=== PATIENT | female | born 1975 | race Caucasian/White ===

== ENCOUNTER → 2020-08-14 09:47 | Outpatient (CLI) | payer OTHER, SELFPAY ==
--- NOTE | ~2020-08-14 | MM_ITS ---
EXAMINATION: MM screening analy BI w ez HISTORY: Screening mammogram TECHNIQUE: Craniocaudal and mediolateral oblique 3-D tomosynthesis images were obtained and synthetic 2-D images were generated. CAD analysis was submitted and interpreted. COMPARISON: 11/10/2018, 09/02/2017, 247 BREAST PARENCHYMAL COMPOSITION: The breasts are heterogeneously dense, which may obscure small masses . FINDINGS: RIGHT BREAST: There is no evidence of suspicious mass, calcification, or architectural distortion to suggest malignancy. There has been no significant interval change. LEFT BREAST: There is possible architectural distortion in the middle third of the upper, slightly ou ter breast best appreciated on craniocaudal tomosynthesis image 63/92. IMPRESSION: 1. Possible left breast architectural distortion. 2. Additional mammographic views and possible breast ultrasound are recommended. BI-RADS Category 0: Incomplete: Needs additional imaging evaluation. Reviewed, dictated and finalized at location A. ON WASHER IMPRESSION: 1. Possible left breast architectural distortion. 2. Additional mammographic views and possible breast ultrasound are recommended . BI-RADS Category 0: Incomplete: Needs additional imaging evaluation.
== END ==
PROVIDERS: PCP Internal Medicine; Visit Provider Obstetrics & Gynecology
DX: Z12.31 Encounter for screening mammogram for malignant neoplasm of breast (principal); R92.8 Other abnormal and inconclusive findings on diagnostic imaging of breast
CPT/HCPCS: 77063; 77067

== ENCOUNTER → 2020-08-28 09:07 | Outpatient (CLI) | payer OTHER, SELFPAY ==
--- NOTE | ~2020-08-28 | MM_ITS ---
EXAMINATION: MM diagnostic mammo unilat LT HISTORY: Possible architectural distortion evaluation TECHNIQUE: Additional 3-D tomosynthesis images of the left breast were performed and synthetic 2-D im ages were generated. CAD analysis was submitted and interpreted. COMPARISON: Comparison to multiple prior studies sequentially, with oldest reviewed study dated 06/09. BREAST PARENCHYMAL COMPOSITION: Breast composed of scattered areas of fibroglandular density FINDINGS: . There are no suspicious masses, calcifications or architectural distortion to suggest mal ignancy. IMPRESSION: 1. No mammographic evidence for malignancy in the left breast. 2. Routine yearly screening mammogram and regular clinical breast examination are recommended. BI-RADS Category 1: Negative Reviewed, dictated and finalized at location A. RONMENTAL PERMITTING SPECIALIST IMPRESSION: 1. No mammographic evidence for malignancy in the left breast. 2. Routine yearly screening mammogram and regular clinical breast examination a re recommended. BI-RADS Category 1: Negative
== END ==
PROVIDERS: Visit Provider Obstetrics & Gynecology Gynecology
DX: R92.8 Other abnormal and inconclusive findings on diagnostic imaging of breast (principal)
CPT/HCPCS: 77065

== ENCOUNTER 2021-07-16 11:43 | Outpatient (CLI) | payer OTHER, SELFPAY | END 2021-07-16 11:44 | disposition home or self-care (01) | PROVIDERS: PCP Internal Medicine; Visit Provider Urology | DX: N39.3 Stress incontinence (female) (male) (principal); Z01.818 Encounter for other preprocedural examination | CPT/HCPCS: 87086 ==

== ENCOUNTER 2021-07-23 00:15 | Day surgery (SDC) | payer OTHER, SELFPAY ==
[2021-07-16 10:26] VITALS: BMI 39.1
--- NOTE | 2021-07-16 10:36 | PC.NURSE ---
Report to the Outpatient Waiting Room, entrance under the green pavilion located off [facility], at time 6:45 on date 07/23/21. OR Time: 8:45. - You will be asked a series of questions to screen for COVID 19 for your protection. - A mask is required within the hospital. - No visitors are is allowed at this time. Preoperative COVID Testing Requirements: No COVID Test needed if: (proof is required; if not received patient will have Rapid Test prior to entry) - Patient has received COVID Vaccine at least 14 days prior to procedure date or - Patient has positive COVID test result within last 90 days of surgery date. COVID Test needed if above criteria is not met Patients may have clear liquids (water, carbonated beverages, clear teas, apple juice) until 3 hours prior to surgery (5:45) with a maximum of 20 ounces. - No food from midnight until time of surgery Take the following medications with a SIP of water the morning of surgery: DULOXETINE, LOESTRIN Medications to discontinue per physician: N/A Date to take last dose: N/A Please no make-up, nail burmese, hairspray, perfume, deodorant, or body powder the day of surgery. No jewelry (including any body piercings) or valuables the day of surgery, leave them at home. Please take a shower or bath the night before, or the morning of, surgery with an antibacterial soap. Wear comfortable, loose fitting clothing. - Jewelry must be removed prior to entering the operating room. Rings and piercings that are not removed may be cut off. - The hospital will not accept responsibility for valuables. - Please leave all valuables, including medications, at home the day of surgery. If you are going home after surgery, a licensed parcel post truck driver must drive you home. - NO public transportation without another adult. - We recommend that an adult stay with you for 24 hours following discharge. - We also recommend that you do not drive, make important decision, drink alcoholic beverages, or take any drugs that were not prescribed by your health care provider for at least 24 hours after your discharge time. Follow any additional instructions given to you from your surgeon. Telephone instructions given to LONNIE RINCON and asked if any additional questions and then verbalized understanding. Patient advised to call surgeon office or pre surgery nurse liaison [phone] if any additional questions.
--- NOTE | 2021-07-22 05:11 | PM.IMHP ---
H&P: HPI History of Present Illness Date/Time: 07/22/21 05:11 46 yo with SRAVANI Chief Complaint: SRAVANI Review of Systems Review of Systems: All systems reviewed & are unremarkable except as noted in HPI and below PMFSH Past Medical History Medical History High cholesterol Surgical History Surgical History History of carpal tunnel surgery Lower extremity surgery planned Family History Family History Father Depression Hypertension Family history of emphysema Family history of bipolar disorder Mother Diabetes mellitus Hypertension Family history of arthritis Family history of bipolar disorder Family history of malignant neoplasm of uterus Social History Social History Smoking packs per day: 1 Smoking cigarettes per day: 20.0 Years smoked: 3 Smoking pack-years: 3.00 Smoking status: Former smoker Tobacco type: cigarettes Smoking end date: 07/10/96 Alcohol intake: current Drinks per week: 3 Alcohol use details: social Substance use: never Substance use type: does not use Spiritual care concerns: No Meds Home Medications and Allergies Home Medications Medication Instructions Recorded Confirmed Type duloxetine 30 mg capsule,delayed 30 mg PO DAILY #90 cap 06/26/20 07/16/21 Rx release norethindrone 1 mg-ethinyl 1 tablet PO DAILY 06/26/20 07/16/21 History estradiol 10 mcg (24)-iron 10 mcg(2) tablet rosuvastatin 20 mg tablet 20 mg PO DAILY #90 tablet 06/30/20 07/16/21 Rx omeprazole 40 mg capsule,delayed 40 mg PO DAILY 90 Days #90 cap 07/13/21 07/16/21 Rx release Allergies Allergy/AdvReac Type Severity Reaction Status Date / Time No Known Allergies Allergy Unverified 07/16/21 10:26 Exam Narrative: + urethral mobility NAD normal resp A+O x3 Assessment and Plan Assessment and plan (1) SRAVANI (stress urinary incontinence, female): Code(s): N39.3 - Stress incontinence (female) (male) Status: Acute Assessment and Plan: urethral sling
--- NOTE | 2021-07-23 07:10 | WPDHPUPDATE1 ---
History and Physical Update Update Date/Time: 07/23/21 07:10 History and Physical has been reviewed, including an updated exam of the patient. There are NO changes in the patient's condition. Risks, benefits, and alternatives have been discussed and questions answered. Patient agrees to proceed with procedure.
[2021-07-23] MEDS: LACTATED RINGERS 1,000 ML 30 ML IV CONT (07:16)
[2021-07-23 07:21] VITALS: BP 131/87; PULSE 92; RESP 16; TEMP 37.2; O2SAT 97
--- NOTE | 2021-07-23 07:32 | WPDANESEPPF ---
Anes - Initial Pre Proc Eval Procedure: Operation Date: 07/23/21 08:45 Proposed Procedures p Urethral Sling - John Joe MD Date/Time: 07/23/21 07:32 Surgeon: John Joe MD Pre Op Diagnosis: stress incont Patient Data Age: 46 Gender: F Height: 1.63 m Weight: 103.1 kg Last Vital Signs Temp 37.2 C 07/23/21 07:21 Pulse 92 07/23/21 07:21 Resp 16 07/23/21 07:21 BP 131/87 07/23/21 07:21 Pulse Ox 97 07/23/21 07:21 Allergies Allergy/AdvReac Type Severity Reaction Status Date / Time No Known Allergies Allergy Unverified 07/23/21 07:08 Home Medications Medication Instructions Recorded Confirmed Type duloxetine 30 mg capsule,delayed 30 mg PO DAILY #90 cap 06/26/20 07/23/21 Rx release norethindrone 1 mg-ethinyl 1 tablet PO DAILY 06/26/20 07/23/21 History estradiol 10 mcg (24)-iron 10 mcg(2) tablet rosuvastatin 20 mg tablet 20 mg PO DAILY #90 tablet 06/30/20 07/23/21 Rx omeprazole 40 mg capsule,delayed 40 mg PO DAILY 90 Days #90 cap 07/13/21 07/23/21 Rx release Patient hx anesthesia problems: none Family hx anesthesia problems: none Results Review: All pre-operative results and documents have been reviewed as part of the pre-operative evaluation. [facility] Past Medical History Medical History (Updated 07/23/21 @ 07:33 by Ciro Ibrahim DO) Anxiety Chronic GERD High cholesterol Surgical History Surgical History History of carpal tunnel surgery Lower extremity surgery planned Family History Family History Father Depression Hypertension Family history of emphysema Family history of bipolar disorder Mother Diabetes mellitus Hypertension Family history of arthritis Family history of bipolar disorder Family history of malignant neoplasm of uterus Social History Social History Smoking packs per day: 1 Smoking cigarettes per day: 20.0 Years smoked: 3 Smoking pack-years: 3.00 Smoking status: Former smoker Tobacco type: cigarettes Smoking end date: 07/10/96 Alcohol intake: current Drinks per week: 3 Alcohol use details: social Substance use: never Substance use type: does not use Living arrangements: with family Spiritual care concerns: No Anes - Eval Final PreProcedure Day of Procedure 07/23/21 07:32 Patient weight: obese Heart: regular rate and rhythm Lungs: clear to auscultation and normal air movement Airway: Mallampati scale class II Neurological: alert and oriented Last oral intake: >/= 8 hours ASA classification: II Emergent: no Anesthetic plan: proceed Anesthesia type and monitoring: general GIVS and standard monitoring Results Review: All pre-operative results and documents have been reviewed as part of the pre-operative evaluation. Informed Consent: The patient's anesthetic plan and its attendant risks and benefits were discussed with the patient/family/POA. Questions were solicited and answers provided to the satisfaction of the patient/family/POA.
[2021-07-23] MEDS: ceFAZolin 2 GM/D5W 50 ML 2 GM/50 ML BAG IVPB (08:23)
[2021-07-23] MEDS: BUPIVACAINE/EPINEPHRINE 0.25% 10 ML VIAL 20 ML INFILTRATE (08:44)
[2021-07-23 09:00] VITALS: BP 132/82; PULSE 89; RESP 20; O2SAT 99
--- NOTE | 2021-07-23 09:04 | W.PM.PROC2 ---
Procedure Note - Detailed Date of Procedure 07/23/21 Pre-op Diagnosis stress incont Post-op Diagnosis same Procedure Performed mid urethral sling cystoscopy Surgeon John Joe MD Indications This is a female with confirm stress urinary incontinence. She desires surgical correction. She understands the risks of bleeding, infection, injury to the urinary tract, vaginal mesh extrusion, urinary tract mesh erosion, obstructive voiding requiring a secondary procedure, hip and leg pain, dyspareunia, inability to improve overactive bladder symptoms. She agrees to proceed. Description of Procedure She was correctly identified. Informed consent obtained. She was brought the operating room. She was given appropriate anesthesia. She was given appropriate perioperative antibiotics. A time-out performed. I marked out the site of the inner thigh incisions. I anesthetized the skin and made those incisions. I anesthetized the anterior vaginal wall over the mid urethra. I made a 1 cm incision. I dissected out laterally taking great care not to injure the refilled vaginal wall. I passed the helical trocars. First on the left. Then on the right. I did this from the thigh incision towards the vaginal incision. The sling was connected to the trocars and brought out through the thigh incision. I tensioned the sling appropriately. I cut and the plastic sheaths. I then closed the incision with 2 0 Vicryl. On cystoscopy there is no tumors or surgical artifact. There was no surgical artifact in the urethra. I cut the excess sling material. Close incisions with glue. She was awakened and transferred to the PACU in stable condition. Implants Urethral sling Drains No Packing No Pathology none sent Complications No immediate complications Condition stable Disposition PACU
[2021-07-23 09:15] VITALS: BP 132/96; PULSE 72; RESP 16
--- NOTE | 2021-07-23 09:17 | SUR.PHASEII ---
pt informed that she needs to void before she can be discharged.
[2021-07-23 09:37] VITALS: BP 136/86; PULSE 67; RESP 18
== END 2021-07-23 10:00 | disposition home or self-care (01) ==
PROVIDERS: PCP Internal Medicine; Visit Provider Urology
PROC: (CPT 57288; principal; 2021-07-23 08:45)
DX: N39.3 Stress incontinence (female) (male) (principal); F41.9 Anxiety disorder, unspecified; K21.9 Gastro-esophageal reflux disease without esophagitis; E78.00 Pure hypercholesterolemia, unspecified; Z87.891 Personal history of nicotine dependence; E66.9 Obesity, unspecified; Z68.39 Body mass index [BMI] 39.0-39.9, adult
CPT/HCPCS: 57288; A9270; C1771; J0690; J1100; J2250; J2405; J2704; J3010; J7030; J7120

== ENCOUNTER 2021-08-19 00:05 | Day surgery (SDC) | payer OTHER, SELFPAY ==
[2021-08-10 14:43] VITALS: BMI 38.9
[2021-08-19 06:58] VITALS: BP 136/88; PULSE 94; RESP 18; TEMP 37.6; O2SAT 98; BMI 38.7
[2021-08-19] MEDS: LACTATED RINGERS 1,000 ML 150 ML IV CONT (07:12)
--- NOTE | 2021-08-19 07:23 | WPDGICN ---
Assessment and Plan Assessment and plan (1) Chronic GERD: Code(s): K21.9 - Gastro-esophageal reflux disease without esophagitis Status: Acute Assessment and Plan: Patient has chronic GE reflux. Plan is for EGD to exclude contributing causes exclude Delcid's esophagus etc. further recommendations will be given after endoscopy. Continuing omeprazole 40mg p.o. daily was anti-reflux measures to include elevating head of bed at night no late snacks bland foods and avoiding caffeine are encouraged.. GI Consult Note Consult date/time: 08/19/21 07:23 HPI: Twila Encarnacion is a 46 year old female Presents for EGD. Patient has a history of acid regurgitation and reflux has been noted for several years. Initially was treated with omeprazole 20mg p.o. daily which worked well until recently. Over the last several years she has noticed breakthrough heartburn and regurgitation. She was seen 1 month ago by nurse practitioner in the office dose of omeprazole increased to40mg p.o. daily and this has caused her heartburn to resolved. She does note occasional nausea. Patient denies any weight loss. She has had no bleeding. She has no difficulty swallowing. She presents today for EGD because of ongoing long-term acid reflux. Review of Systems Review of Systems: All systems reviewed & are unremarkable except as noted in HPI and below PMFSH Past Medical History Medical History (Updated 07/23/21 @ 07:33 by Ciro Ibrahim DO) Anxiety Chronic GERD High cholesterol Surgical History Surgical History History of carpal tunnel surgery Lower extremity surgery planned Family History Family History Father Depression Hypertension Family history of emphysema Family history of bipolar disorder Mother Diabetes mellitus Hypertension Family history of arthritis Family history of bipolar disorder Family history of malignant neoplasm of uterus Social History Social History Smoking packs per day: 1 Smoking cigarettes per day: 20.0 Years smoked: 3 Smoking pack-years: 3.00 Smoking status: Never smoker Tobacco type: cigarettes Smoking end date: 07/10/96 Alcohol intake: current Drinks per week: 3 Alcohol use details: social Substance use: never Substance use type: does not use Living arrangements: with family Spiritual care concerns: No Meds Home Medications and Allergies Home Medications Medication Instructions Recorded Confirmed Type duloxetine 30 mg capsule,delayed 30 mg PO DAILY #90 cap 06/26/20 08/10/21 Rx release norethindrone 1 mg-ethinyl 1 tablet PO DAILY 06/26/20 08/10/21 History estradiol 10 mcg (24)-iron 10 mcg(2) tablet rosuvastatin 20 mg tablet 20 mg PO DAILY #90 tablet 06/30/20 08/10/21 Rx omeprazole 40 mg capsule,delayed 40 mg PO DAILY 90 Days #90 cap 07/13/21 08/10/21 Rx release Allergies Allergy/AdvReac Type Severity Reaction Status Date / Time No Known Allergies Allergy Verified 08/19/21 06:57 Vital Signs Vital Signs - 24 hr 08/19/21 06:58 Temperature 99.7 F H Pulse Rate 94 Respiratory Rate 18 Blood Pressure 136/88 Pulse Oximetry 98 Exam Narrative: Physical exam reveals patient to be alert. Vital signs stable. HEENT exam is unremarkable. Patient is anicteric. Lungs are clear to auscultation and percussion. Heart is without murmur or extra sounds. Abdominal exam bowel sounds are present soft nontender with no organomegaly. Digital external rectal exam is deferred.
--- NOTE | 2021-08-19 07:39 | WPDANESEPPF ---
Anes - Initial Pre Proc Eval Procedure: Operation Date: 08/19/21 08:00 Proposed Procedures p Esophagogastroduodenoscopy - Craig Larios MD Date/Time: 08/19/21 07:39 Surgeon: Craig Larios MD Pre Op Diagnosis: GERD, nausea Patient Data Age: 46 Gender: F Height: 1.63 m Weight: 102.2 kg Last Vital Signs Temp 99.7 F H 08/19/21 06:58 Pulse 94 08/19/21 06:58 Resp 18 08/19/21 06:58 BP 136/88 08/19/21 06:58 Pulse Ox 98 08/19/21 06:58 Allergies Allergy/AdvReac Type Severity Reaction Status Date / Time No Known Allergies Allergy Verified 08/19/21 06:57 Home Medications Medication Instructions Recorded Confirmed Type duloxetine 30 mg capsule,delayed 30 mg PO DAILY #90 cap 06/26/20 08/10/21 Rx release norethindrone 1 mg-ethinyl 1 tablet PO DAILY 06/26/20 08/10/21 History estradiol 10 mcg (24)-iron 10 mcg(2) tablet rosuvastatin 20 mg tablet 20 mg PO DAILY #90 tablet 06/30/20 08/10/21 Rx omeprazole 40 mg capsule,delayed 40 mg PO DAILY 90 Days #90 cap 07/13/21 08/10/21 Rx release Patient hx anesthesia problems: none Family hx anesthesia problems: none Results Review: All pre-operative results and documents have been reviewed as part of the pre-operative evaluation. [facility] [place] Past Medical History Medical History (Updated 07/23/21 @ 07:33 by Ciro Ibrahim DO) Anxiety Chronic GERD High cholesterol Surgical History Surgical History History of carpal tunnel surgery Lower extremity surgery planned Family History Family History Father Depression Hypertension Family history of emphysema Family history of bipolar disorder Mother Diabetes mellitus Hypertension Family history of arthritis Family history of bipolar disorder Family history of malignant neoplasm of uterus Social History Social History Smoking packs per day: 1 Smoking cigarettes per day: 20.0 Years smoked: 3 Smoking pack-years: 3.00 Smoking status: Never smoker Tobacco type: cigarettes Smoking end date: 07/10/96 Alcohol intake: current Drinks per week: 3 Alcohol use details: social Substance use: never Substance use type: does not use Living arrangements: with family Spiritual care concerns: No Anes - Eval Final PreProcedure Day of Procedure 08/19/21 07:39 Patient weight: obese Heart: regular rate and rhythm Lungs: clear to auscultation Airway: Mallampati scale class II Neurological: alert and oriented Last oral intake: >/= 8 hours ASA classification: II Emergent: no Anesthetic plan: proceed Anesthesia type and monitoring: general GIVS and standard monitoring Results Review: All pre-operative results and documents have been reviewed as part of the pre-operative evaluation. Informed Consent: The patient's anesthetic plan and its attendant risks and benefits were discussed with the patient/family/POA. Questions were solicited and answers provided to the satisfaction of the patient/family/POA.
[2021-08-19] MEDS: BENZOCAINE (*SP) 60 ML SPRAY CAN (HURRICAINE) 1 SPRAY MUCOUS MEM (08:01)
[2021-08-19 08:09] VITALS: BP 130/90; PULSE 87; RESP 17; O2SAT 98
[2021-08-19 08:19] VITALS: BP 135/91; PULSE 76; RESP 18; O2SAT 98
[2021-08-19 08:29] VITALS: BP 136/87; PULSE 80; RESP 17; O2SAT 100
== END 2021-08-19 08:54 | disposition home or self-care (01) ==
PROVIDERS: PCP Internal Medicine; Visit Provider Internal Medicine Gastroenterology
PROC: 0DJ08ZZ Inspection of Upper Intestinal Tract, Via Natural or Artificial Opening Endoscopic (ICD-10-PCS; CPT 43235; principal; 2021-08-19 08:00)
DX: K21.9 Gastro-esophageal reflux disease without esophagitis (principal); R11.0 Nausea; F41.9 Anxiety disorder, unspecified; E78.00 Pure hypercholesterolemia, unspecified; E66.9 Obesity, unspecified; Z68.38 Body mass index [BMI] 38.0-38.9, adult
CPT/HCPCS: 43239; 87081; J2704; J7120

== ENCOUNTER 2022-02-08 10:58 | Outpatient (CLI) | payer OTHER, SELFPAY ==
--- NOTE | ~2022-02-08 | XR_ITS ---
EXAM: [id number] DATE: 02/08/2022 11:25 HISTORY: NUMBNESS, PAIN, TINGLING IN LEFT ARM . COMPARISON: None available. FINDINGS: Exam limited by poor visualization of the cervicothoracic junction with lateral views. Cran iocervical association and atlantoaxial joint are aligned, with minimal degenerative change. No preve rtebral soft tissue swelling. 1 mm anterolisthesis of C3 on C4 and C4 on C5, otherwise the vertebral bodies are aligned. Loss of the normal lordosis as can occur with positioning or spasm. Vertebral bod y heights and disc spaces are maintained. Mild facet sclerosis. IMPRESSION: Minimal grade 1 anterolistheses of C3 on C4 and C4 on C5. Multilevel mild facet arthropat hy. Reviewed, dictated and finalized at location K. IMPRESSION: Minimal grade 1 anterolistheses of C3 on C4 and C4 on C5. Multileve l mild facet arthropathy.
== END 2022-02-08 10:59 | disposition home or self-care (01) ==
PROVIDERS: PCP Internal Medicine; Visit Provider Nurse Practitioner
DX: M54.12 Radiculopathy, cervical region (principal); R20.2 Paresthesia of skin; M79.602 Pain in left arm
CPT/HCPCS: 72040

== ENCOUNTER 2022-07-01 16:33 | Emergency (ER) | payer OTHER, SELFPAY ==
[2022-07-01 16:40] VITALS: BP 152/95; PULSE 94; RESP 20; TEMP 38.1; O2SAT 100
--- NOTE | 2022-07-01 16:45 | ED.URI ---
HPI - URI/Sore Throat General Chief Complaint: Upper Respiratory Infection Stated Complaint: chills, drainage Time Seen by Provider: 07/01/22 16:52 Source: patient and RN notes reviewed Mode of arrival: ambulatory Limitations: no limitations History of Present Illness HPI Narrative: 47-year-old female presents concern for sinus drainage, chills and fever. Reports symptoms started Monday night. Reports she Tania some NyQuil today. She reports exposure flu and COVID at work. MD elicited complaint: cough and sore throat Related Data Home Medications Medication Instructions Recorded Confirmed norethindrone 1 mg-ethinyl 1 tablet PO DAILY 06/26/20 07/01/22 estradiol 10 mcg (24)-iron 10 mcg(2) tablet (Lo Loestrin Fe) Allergies Allergy/AdvReac Type Severity Reaction Status Date / Time No Known Allergies Allergy Verified 07/01/22 16:39 Review of Systems Review of Systems: CONSTITUTIONAL: Reports malaise, chills, fever. EYES: Denies visual changes, redness, or discharge. ENT: Reports rhinorrhea, congestion. Denies sinus pain, otalgia and sore throat. CARDIOVASCULAR: Denies chest pain, palpitations, or edema. RESPIRATORY: Reports occasional cough. Denies dyspnea. GASTROINTESTINAL: Denies abdominal pain, nausea, vomiting, diarrhea SKIN: Denies rash or itching. MUSCULOSKELETAL: Denies myalgia. NEUROLOGIC: Denies headache. All systems reviewed & are unremarkable except as noted in HPI and below PMFSH Past Medical History Medical History Anxiety Chronic GERD High cholesterol Surgical History Surgical History History of carpal tunnel surgery Lower extremity surgery planned Family History Family History Father Depression Hypertension Family history of emphysema Family history of bipolar disorder Mother Diabetes mellitus Hypertension Family history of arthritis Family history of bipolar disorder Family history of malignant neoplasm of uterus Social History Social History (Updated 02/08/22 @ 10:15 by Sharla Izaguirre CMA) Smoking packs per day: 1 Smoking cigarettes per day: 20.0 Years smoked: 3 Smoking pack-years: 3.00 Smoking status: Never smoker Tobacco type: cigarettes Smoking end date: 07/10/96 Alcohol intake: current Drinks per week: 3 Alcohol use details: social Substance use: never Substance use type: does not use Spiritual care concerns: No Comments At time of signature, agree with nursing past medical, surgical, social and family history. There is no relevant family history pertinent to the presenting complaint Exam Narrative: GENERAL: Well-appearing, well-nourished, and in no acute distress. HEAD: Normocephalic EYES: PERRLA, conjunctivae clear ENT: Nares clear, turbinates edematous and erythematous, clear discharge. Mucous membranes moist. TM pearly silva with sharp light reflex bilaterally; no tragal tenderness. Oropharynx not erythematous without lesions. Tonsils not enlarged and without exudate, no drooling, no hoarseness, no trismus, uvula midline. NECK: Supple. No lymphadenopathy CHEST: Clear to auscultation, breath sounds equal. No wheezing, rhonchi, rales, or stridor. No respiratory distress, speaks in full sentences. HEART: Regular rate and rhythm. No murmur heard. SKIN: Warm, dry, no rash. NEURO: Alert and oriented x3. PSYCH: Normal mood and affect Course Course Emergency Course: Patient is aware of diagnosis, understands and agrees to treatment plan. Anticipatory guidance given. Patient agrees to follow-up as directed and is aware of reasons to seek care at the emergency department. Portions of this record may have been created with voice recognition software Level of Care: Express Care Visit Vital Signs Vital signs: Reviewed. MDM - URI/Sore Throat MDM Narrative [facility]
== END 2022-07-01 16:58 | disposition home or self-care (01) ==
PROVIDERS: Emergency Provider Nurse Practitioner; PCP Internal Medicine
DX: J10.1 Influenza due to other identified influenza virus with other respiratory manifestations (principal); Z20.822 Contact with and (suspected) exposure to COVID-19; Z87.891 Personal history of nicotine dependence; K21.9 Gastro-esophageal reflux disease without esophagitis; E78.00 Pure hypercholesterolemia, unspecified
CPT/HCPCS: 87426; 87804; 99213; C9803; G0463

== ENCOUNTER 2022-07-25 06:13 | Emergency (ER) | payer OTHER, SELFPAY ==
[2022-07-25] VITALS (12 sets, daily range): BP systolic 134–154; BP diastolic 95–107; PULSE 83–98; RESP 14–28; TEMP 36.3–37.1; O2SAT 96–98
--- NOTE | ~2022-07-25 | XR_ITS ---
EXAMINATION: XR chest 2V DATE: 07/25/2022 06:45 INDICATION: Midsternal chest pressure TECHNIQUE: PA and lateral views of the chest were obtained. COMPARISON: Chest radiograph dated 04/28/2022 FINDINGS: The lungs remain clear with no focal airspace opacities, pulmonary edema, pleural effusion or pneumot horax. The cardiomediastinal silhouette is normal. 50 degrees lower thoracic dextroscoliosis with mil d to moderate spondylosis. IMPRESSION: 1. No acute cardiopulmonary disease. Reviewed, dictated and finalized at location A. WORKER
--- NOTE | 2022-07-25 06:14 | ECG_ITS ---
Measurements Intervals [place] Rate: 89 P: 0 NC: 138 QRS: 35 QRSD: 81 T: -1 QT: 347 QTc: 422 Interpretive Statements SINUS RHYTHM BORDERLINE ST-T WAVE ABNORMALITY- INFERIOR LEADS BASELINE WANDER- V3-V6 BORDERLINE ECG NO PREVIOUS ECG AVAILABLE FOR COMPARISON Electronically Signed On 07-25-2022 8:00:03 LEAD PROGRAMMER ANALYST by Derek Jimenez D.O.
--- NOTE | 2022-07-25 06:14 | PC.NURSE ---
Patient refused w/c to room.
[2022-07-25 06:27] LABS: Basophils Percent Auto 0.5 % (0.2-1.2); Eosinophils Absolute Auto 0.1 K/mm3 (0-0.3); Eosinophils Percent Auto 1.5 % (0-4.4); Hematocrit 46.4 % (37.0-47.0); Hemoglobin 15.3 g/dL (12.0-15.0); Immature Granulocyte Absolute 0.03 K/mm3 (0.00-0.031); Immature Granulocyte Percent A 0.3 % (0-0.5); Lymphocytes Absolute Auto 1.38 K/mm3 (0.9-3.2); Lymphocytes Percent Auto 15.9 % (18.3-44.2); Mean Corpuscular Hemoglobin 29.3 pg (26-34); Mean Corpuscular Volume 88.9 fl (80-100); Mean Platelet Volume 10.4 fl (7.4-10.4); Monocytes Percent Auto 11.4 % (2.6-8.5); Neutrophils Absolute Auto 6.1 K/mm3 (1.3-6.7); Neutrophils Percent Auto 70.4 % (45.5-73.1); Platelet Count Result 295 k/mm3 (150-375); Red Blood Count 5.22 M/mm3 (4.2-5.4); Red Cell Distribution Width 12.7 % (11.5-14.5); White Blood Count 8.7 K/mm3 (4.5-10.0)
[2022-07-25 06:37] LABS: Alanine Aminotransferase 27 U/L (6-35); Albumin Level 4.5 g/dL (3.5-5.1); Alkaline Phosphatase 96 U/L (38-126); Anion Gap 8 mmol/L (8-16); Aspartate Amino Transferase 25 U/L (14-36); Bilirubin,Total 0.4 mg/dL (0.2-1.3); Blood Urea Nitrogen 13 mg/dL (7-17); Calcium 9.1 mg/dL (8.4-10.2); Carbon Dioxide 25 mmol/L (22-30); Chloride 103 mmol/L (98-107); Estimated Glomerular Filt Rate > 60; Glucose 132 mg/dL (65-110); Lipase 77 U/L (23-300); Potassium 4.3 mmol/L (3.4-5.0); Sodium 136 mmol/L (137-145)
[2022-07-25 06:46] LABS: INR 0.9; Prothrombin Time 11.5 Seconds (11.1-14.7)
[2022-07-25] MEDS: ASPIRIN 81 MG CHEWABLE TABLET 324 MG PO (06:46)
[2022-07-25 06:47] LABS: Partial Thromboplastin Time 24.9 SECONDS (22.3-36.8)
[2022-07-25 06:48] LABS: Troponin I < 0.012 ng/mL (0.000-0.034)
--- NOTE | 2022-07-25 07:15 | ED.CHESTPAIN ---
HPI - Chest Pain General Chief Complaint: Chest Pain Stated Complaint: Chest pressure Time Seen by Provider: 07/25/22 06:56 History of Present Illness HPI narrative: Pt presents with intermitten chest pressure over the last month or so. Pt says it is a pressure and lasts 30 seconds to a minute and resolves on own. Pt denies precipitating or relieving factors and states the discomfort comes and goes on its own. Pt denies diaphoresis or SOB or nausea. Pt says aisha yesterday pt had more episodes of similar character and thought she should get it checked out. Pt is currently pain free. Related Data Home Medications Medication Instructions Recorded Confirmed norethindrone 1 mg-ethinyl 1 tablet PO DAILY 06/26/20 07/01/22 estradiol 10 mcg (24)-iron 10 mcg(2) tablet (Lo Loestrin Fe) Allergies Allergy/AdvReac Type Severity Reaction Status Date / Time No Known Allergies Allergy Verified 07/01/22 16:39 Review of Systems Review of Systems: All systems reviewed & are unremarkable except as noted in HPI and below PMFSH Past Medical History Medical History Anxiety Chronic GERD High cholesterol Surgical History Surgical History History of carpal tunnel surgery Lower extremity surgery planned Family History Family History Father Depression Hypertension Family history of emphysema Family history of bipolar disorder Mother Diabetes mellitus Hypertension Family history of arthritis Family history of bipolar disorder Family history of malignant neoplasm of uterus Social History Social History (Updated 02/08/22 @ 10:15 by Sharla Izaguirre CMA) Smoking packs per day: 1 Smoking cigarettes per day: 20.0 Years smoked: 3 Smoking pack-years: 3.00 Smoking status: Never smoker Tobacco type: cigarettes Smoking end date: 07/10/96 Alcohol intake: current Drinks per week: 3 Alcohol use details: social Substance use: never Substance use type: does not use Spiritual care concerns: No Exam Const: General: healthy appearing, no acute distress and alert Nutritional Appearance: well nourished Orientation/consciousness: patient oriented x3 Limitations: no limitations Chest: Chest palpation & inspection: normal inspection of the chest Other: no tenderness to palpation Resp: Effort & Inspection: normal respiratory effort Auscultation: clear to auscultation bilaterally Cardio: Rate: regular rate Rhythm: regular rhythm GI: Auscultation: normal bowel sounds Skin: General skin exam: normal color Wounds: no wounds Neuro: General: patient oriented x3 and moves all extremities Cranial nerves: Yes Nystagmus not present Speech: normal speech Extrem: General: normal to inspection and no clubbing, cyanosis or edema Psych: Mental Status: mental status grossly normal Affect: normal affect Attitude: cooperative Course Vital Signs Vital signs: Vital Signs Temperature 97.4 F L 07/25/22 06:16 Pulse Rate 90 07/25/22 06:16 Respiratory Rate 18 07/25/22 06:16 Pulse Oximetry 97 07/25/22 06:16 Temperature 98.8 F 07/25/22 10:31 Pulse Rate 88 07/25/22 09:37 Respiratory Rate 17 07/25/22 09:37 Blood Pressure 142/107 H 07/25/22 09:37 Pulse Oximetry 98 07/25/22 09:37 Oxygen Delivery Room Air 07/25/22 06:22 MDM - Chest Pain MDM Narrative Medical decision making narrative: given the frequency over the last month and yesterday and the brief nature of the CP cardiac is less likely and more likely musculoskelatal or could be GI, will order cardiac work up. if has two sets of neg trops then should be safe to discharge. labs, cxr and ekg all normal including two neg troponins. safe for disharge on ibuprofen, likely musculoskelatal. Lab Data 07/25/22 06:22 07/25/22 06:22
[2022-07-25 10:07] LABS: Troponin I < 0.012 ng/mL (0.000-0.034)
== END 2022-07-25 10:34 | disposition home or self-care (01) ==
PROVIDERS: Emergency Medicine; Emergency Provider Emergency Medicine; PCP Internal Medicine
DX: M94.0 Chondrocostal junction syndrome [Tietze] (principal); E78.00 Pure hypercholesterolemia, unspecified; K21.9 Gastro-esophageal reflux disease without esophagitis; Z87.891 Personal history of nicotine dependence
CPT/HCPCS: 36415; 71046; 80053; 83690; 84484; 85025; 85610; 85730; 93005; 99284; A9270

== ENCOUNTER 2022-09-02 12:29 | Outpatient (CLI) | payer OTHER, SELFPAY ==
[2022-09-02 13:11] LABS: Cholesterol 229 mg/dL (0-200); HDL Direct 58 mg/dL; Triglycerides 136 mg/dL (<150)
[2022-09-02 13:54] LABS: Vitamin D 25 Hydroxy 33.6 ng/mL
[2022-09-02 15:19] LABS: LDL Cholesterol Direct 134 mg/dL
== END 2022-09-02 12:30 | disposition home or self-care (01) ==
PROVIDERS: PCP Internal Medicine; Visit Provider Nurse Practitioner
DX: E78.5 Hyperlipidemia, unspecified (principal); E55.9 Vitamin D deficiency, unspecified
CPT/HCPCS: 36415; 80061; 82306

== ENCOUNTER → 2022-09-16 12:13 | Outpatient (CLI) | payer OTHER, SELFPAY ==
--- NOTE | ~2022-09-16 | MM_ITS ---
EXAMINATION: MM screening analy BI w ez HISTORY: Screening mammogram TECHNIQUE: Craniocaudal and mediolateral oblique 3-D tomosynthesis images were obtained and synthetic 2-D images were generated. CAD analysis was submitted and interpreted. COMPARISON: August 28, 2020 diagnostic left mammogram August 14, 2020 bilateral screening mammogram November 10, 2018 bilateral screening mammogram BREAST PARENCHYMAL COMPOSITION: There are scattered areas of fibroglandular density. FINDINGS: There is no evidence of suspicious mass, calcification, or architectural distortion to sugg est malignancy in either breast. There has been no suspicious interval change. IMPRESSION: 1. No mammographic evidence of malignancy. 2. Recommend routine screening mammography in one year. BI-RADS Category 1: Negative Reviewed, dictated and finalized at location B. 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
== END ==
PROVIDERS: PCP Internal Medicine; Visit Provider Obstetrics & Gynecology Gynecology
DX: Z12.31 Encounter for screening mammogram for malignant neoplasm of breast (principal)
CPT/HCPCS: 77063; 77067

== ENCOUNTER 2023-08-09 07:07 | Outpatient (CLI) | payer OTHER, SELFPAY ==
[2023-08-09 07:31] LABS: Basophils Percent Auto 0.6 % (0.2-1.2); Eosinophils Absolute Auto 0.1 K/mm3 (0-0.3); Eosinophils Percent Auto 2.2 % (0-4.4); Hematocrit 44.8 % (37.0-47.0); Hemoglobin 14.4 g/dL (12.0-15.0); Immature Granulocyte Absolute 0.01 K/mm3 (0.00-0.031); Immature Granulocyte Percent A 0.2 % (0-0.5); Lymphocytes Absolute Auto 1.67 K/mm3 (0.9-3.2); Lymphocytes Percent Auto 26.7 % (18.3-44.2); Mean Corpuscular HGB Conc 32.1 g/dl (32-36); Mean Corpuscular Hemoglobin 28.9 pg (26-34); Mean Corpuscular Volume 89.8 fl (80-100); Mean Platelet Volume 10.7 fl (7.4-10.4); Monocytes Absolute Auto 0.7 K/mm3 (0.1-0.6); Monocytes Percent Auto 11.2 % (2.6-8.5); Neutrophils Absolute Auto 3.7 K/mm3 (1.3-6.7); Neutrophils Percent Auto 59.1 % (45.5-73.1); Platelet Count Result 273 k/mm3 (150-375); Red Blood Count 4.99 M/mm3 (4.2-5.4); Red Cell Distribution Width 12.5 % (11.5-14.5); White Blood Count 6.3 K/mm3 (4.5-10.0)
[2023-08-09 07:44] LABS: Alanine Aminotransferase 45 U/L (6-35); Albumin Level 4.4 g/dL (3.5-5.1); Alkaline Phosphatase 64 U/L (38-126); Anion Gap 10 mmol/L (8-16); Aspartate Amino Transferase 43 U/L (14-36); Bilirubin,Total 0.9 mg/dL (0.2-1.3); Blood Urea Nitrogen 15 mg/dL (7-17); Carbon Dioxide 22 mmol/L (22-30); Chloride 106 mmol/L (98-107); Cholesterol 258 mg/dL (0-200); Estimated Glomerular Filt Rate > 60; Glucose 116 mg/dL (65-110); HDL Direct 60 mg/dL; Potassium 4.2 mmol/L (3.4-5.0); Sodium 138 mmol/L (137-145); Triglycerides 167 mg/dL (<150)
[2023-08-09 07:55] LABS: LDL Cholesterol Direct 161 mg/dL
[2023-08-09 08:48] LABS: Hemoglobin A1C 6.3 % (<5.7)
== END 2023-08-09 07:08 | disposition home or self-care (01) ==
LOC: ANHLAB 07:08
PROVIDERS: PCP Internal Medicine; Visit Provider Internal Medicine
DX: E66.9 Obesity, unspecified (principal); E78.5 Hyperlipidemia, unspecified; R73.09 Other abnormal glucose; Z13.228 Encounter for screening for other metabolic disorders
CPT/HCPCS: 36415; 80053; 80061; 83036; 84443; 85025

== ENCOUNTER 2024-02-12 07:27 | Outpatient (CLI) | payer OTHER, SELFPAY ==
[2024-02-12 07:58] LABS: Basophils Percent Auto 0.7 % (0.2-1.2); Eosinophils Absolute Auto 0.1 K/mm3 (0-0.3); Eosinophils Percent Auto 2.1 % (0-4.4); Hematocrit 40.8 % (37.0-47.0); Hemoglobin 13.7 g/dL (12.0-15.0); Immature Granulocyte Absolute 0.02 K/mm3 (0.00-0.031); Immature Granulocyte Percent A 0.3 % (0-0.5); Lymphocytes Absolute Auto 1.76 K/mm3 (0.9-3.2); Lymphocytes Percent Auto 30.3 % (18.3-44.2); Mean Corpuscular HGB Conc 33.6 g/dl (32-36); Mean Corpuscular Hemoglobin 30.4 pg (26-34); Mean Corpuscular Volume 90.5 fl (80-100); Monocytes Absolute Auto 0.7 K/mm3 (0.1-0.6); Monocytes Percent Auto 11.4 % (2.6-8.5); Neutrophils Absolute Auto 3.2 K/mm3 (1.3-6.7); Neutrophils Percent Auto 55.2 % (45.5-73.1); Platelet Count Result 229 k/mm3 (150-375); Red Blood Count 4.51 M/mm3 (4.2-5.4); Red Cell Distribution Width 12.6 % (11.5-14.5); White Blood Count 5.8 K/mm3 (4.5-10.0)
[2024-02-12 08:09] LABS: Alanine Aminotransferase 28 U/L (6-35); Albumin Level 4.3 g/dL (3.5-5.1); Alkaline Phosphatase 65 U/L (38-126); Anion Gap 10 mmol/L (4-12); Aspartate Amino Transferase 28 U/L (14-36); Bilirubin,Total 0.6 mg/dL (0.2-1.3); Blood Urea Nitrogen 15 mg/dL (7-17); Calcium 8.8 mg/dL (8.4-10.2); Carbon Dioxide 25 mmol/L (22-30); Chloride 102 mmol/L (98-107); Cholesterol 218 mg/dL (0-200); Estimated Glomerular Filt Rate > 60; Glucose 112 mg/dL (65-110); HDL Direct 69 mg/dL; Potassium 4.2 mmol/L (3.4-5.0); Sodium 137 mmol/L (137-145); Triglycerides 75 mg/dL (<150)
[2024-02-12 08:19] LABS: LDL Cholesterol Direct 136 mg/dL
[2024-02-12 08:49] LABS: HIV 1/2 Ab P24 Ag Result Negative (Negative)
[2024-02-12 08:57] LABS: Iron 112 ug/dL (37-170)
[2024-02-12 09:06] LABS: Hepatitis B Surface Antigen Negative (Negative); Percent Iron Saturation 27 % (20-50)
[2024-02-12 09:24] LABS: Hepatitis C Virus Antibody Negative (Negative)
[2024-02-12 09:55] LABS: Hemoglobin A1C 6.2 % (<5.7)
[2024-02-14 15:28] LABS: Immunoglobulin A 81 mg/dL (47-310); TTG IGA AB <1.0 U/mL
== END 2024-02-12 07:28 | disposition home or self-care (01) ==
PROVIDERS: PCP Internal Medicine; Visit Provider Nurse Practitioner
DX: R74.01 Elevation of levels of liver transaminase levels (principal); R73.03 Prediabetes
CPT/HCPCS: 36415; 80053; 80061; 82784; 83036; 83540; 83550; 84443; 85025; 86364; 86703; 86803; 87340; G0432

== ENCOUNTER 2024-02-24 08:27 | Outpatient (CLI) | payer OTHER, SELFPAY ==
--- NOTE | ~2024-02-24 | MM_ITS ---
EXAMINATION: MM screening analy BI w ez HISTORY: Screening TECHNIQUE: Craniocaudal and mediolateral oblique 3-D tomosynthesis images were obtained and synthetic 2-D images were generated. CAD analysis was submitted and interpreted. COMPARISON: Comparison to multiple prior studies sequentially, with oldest reviewed study dated 10/2016. BREAST PARENCHYMAL COMPOSITION: Not dense: There are scattered areas of fibroglandular density. FINDINGS: There is no evidence of suspicious mass, calcification, or architectural distortion to sugg est malignancy in either breast. There has been no suspicious interval change. IMPRESSION: 1. No mammographic evidence of malignancy. 2. Recommend routine screening mammography in one year. BI-RADS Category 1: Negative Reviewed, dictated and finalized at location B.
== END 2024-02-24 08:28 ==
PROVIDERS: PCP Internal Medicine; Visit Provider Obstetrics & Gynecology Gynecology
DX: Z12.31 Encounter for screening mammogram for malignant neoplasm of breast (principal)
CPT/HCPCS: 77063; 77067

== ENCOUNTER 2024-04-16 08:14 | Emergency (ER) | payer OTHER, SELFPAY ==
--- NOTE | 2024-04-16 08:17 | ED.URI ---
HPI - URI/Sore Throat General Chief Complaint: Upper Respiratory Infection Stated Complaint: sore throat Time Seen by Provider: 04/16/24 08:19 Source: patient Mode of arrival: ambulatory Limitations: no limitations History of Present Illness HPI Narrative: Twila is a 48-year-old female patient presenting to the clinic today with complaints of a sore throat, nasal congestion, and fatigue since yesterday morning. She reports felt as though her throat was on fire this morning and this prompted her to come in. States she had COVID back and early March. Denies any chest pain, shortness of breath, body aches, fever, or chills. MD elicited complaint: sore throat and nasal congestion Related Data Home Medications Medication Instructions Recorded Confirmed sertraline 50 mg tablet 50 mg PO DAILY 10/06/22 04/16/24 epinephrine 0.3 mg/0.3 mL 0.3 mg IM ONCE PRN 07/31/23 04/16/24 injection, auto-injector hypersensitivity reaction cholecalciferol (vitamin D3) 25 25 mcg PO DAILY 08/10/23 04/16/24 mcg (1,000 unit) capsule ginkgo biloba 40 mg tablet 40 mg PO DAILY 08/10/23 04/16/24 magnesium 200 mg tablet 200 mg PO DAILY 08/10/23 04/16/24 multivitamin 1 tablet PO DAILY 08/10/23 04/16/24 norethindrone 1 mg-ethinyl 1 tablet PO DAILY 02/16/24 04/16/24 estradiol 20 mcg (21)-iron 75 mg (7) tablet (07/29 (28)) Allergies Allergy/AdvReac Type Severity Reaction Status Date / Time No Known Allergies Allergy Verified 04/16/24 08:18 Review of Systems Review of Systems: Pertinent positives per HPI. Patient denies any fever, chills, rash, headache, visual changes, dizziness, cough, shortness of breath, chest pain, palpitations, nausea, vomiting, diarrhea, constipation, abdominal pain, or any urinary issues. [facility] Past Medical History Medical History Anxiety Chronic GERD Eroded bladder suspension mesh High cholesterol Surgical History Surgical History History of carpal tunnel surgery Lower extremity surgery planned Family History Family History Father Depression Hypertension Family history of emphysema Family history of bipolar disorder Mother Diabetes mellitus Hypertension Family history of arthritis Family history of bipolar disorder Family history of malignant neoplasm of uterus Social History Social History Smoking packs per day: 1 Smoking cigarettes per day: 20.0 Years smoked: 3 Smoking pack-years: 3.00 Smoking status: Never smoker Tobacco type: cigarettes Smoking end date: 07/10/96 Alcohol intake: current Drinks per week: 3 Alcohol use details: social Substance use: never Substance use type: does not use Lack of Transportation: No Lack of Food: Never True Current Housing: I Have Housing Concerned About Future Housing: No Difficulty Paying Gas/Electric Bills: No Difficulty Paying for Meds: No Currently Unemployed: No Education: Associate Degree Difficulty w/ Childcare or Family Care: No Living arrangements: with family Spiritual care concerns: No Comments At the time of my signature, I reviewed and agree with the nursing past medical, surgical, social, and family history. There is no relevant family history pertinent to the patient complaint. Exam Narrative: General: Well-developed, well nourished, in no apparent distress Head: Normocephalic, atraumatic Eyes: Pupils equally round and reactive to light bilaterally, EOM intact, sclera and conjunctive clear, no discharge, lids normal Ears: TMs intact and congested, ear canals clear, no drainage, grossly hearing normal. Nose: Nares patent, clear discharge, moderate inflammation, no sinus tenderness. Mouth: Oral pharynx red without lesions or masses, good
[2024-04-16 08:26] VITALS: BP 137/83; PULSE 91; RESP 16; TEMP 36.6; O2SAT 98
[2024-04-16 08:40] LABS: EDSTREPNEGPOS1 Negative (Negative)
[2024-04-16 08:50] LABS: EDCOVIDSCREEN Negative (Negative); EDINFLUASCREEN Negative (Negative); EDINFLUBSCREEN Negative (Negative)
== END 2024-04-16 08:51 | disposition home or self-care (01) ==
PROVIDERS: Emergency Provider Nurse Practitioner Family; PCP Internal Medicine
DX: J06.9 Acute upper respiratory infection, unspecified (principal); J02.9 Acute pharyngitis, unspecified; Z20.822 Contact with and (suspected) exposure to COVID-19; Z87.891 Personal history of nicotine dependence; K21.9 Gastro-esophageal reflux disease without esophagitis; E78.00 Pure hypercholesterolemia, unspecified; F41.9 Anxiety disorder, unspecified
CPT/HCPCS: 87081; 87426; 87804; 87880; 99213; G0463

== ENCOUNTER 2024-08-13 11:20 | Outpatient (CLI) | payer OTHER, SELFPAY ==
[2024-08-13 12:00] LABS: Alanine Aminotransferase 27 U/L (6-35); Albumin Level 4.4 g/dL (3.5-5.1); Alkaline Phosphatase 60 U/L (38-126); Anion Gap 12 mmol/L (4-12); Aspartate Amino Transferase 29 U/L (14-36); Bilirubin,Total 0.6 mg/dL (0.2-1.3); Blood Urea Nitrogen 14 mg/dL (7-17); Calcium 9.1 mg/dL (8.4-10.2); Carbon Dioxide 24 mmol/L (22-30); Chloride 103 mmol/L (98-107); Estimated Glomerular Filt Rate > 60; Glucose 98 mg/dL (65-110); Potassium 3.9 mmol/L (3.4-5.0); Sodium 139 mmol/L (137-145)
--- OUTSIDE RECORDS SUMMARY | 2024-08-13 12:00 | XMS_ITS | Clinical Summary ---
Author Organization [facility] Address [address] [place] [address]. [place], [place] [address] [place] [address] Care Team Providers Care Food Counter Worker Name Role Phone Unavailable Primary Care Provider Unavailabl e Social History Tobacco Use Types Packs/Day Years Used Date Smoking Tobacco: Never Assessed Comments Unknown Sex and Gender Information Value Date Recorded Sex Assigned at Not on file Legal Sex Female 6:55 PM CDT Gender Identity Not on file Sexual Orientation Not on file Plan of Treatment Health Maintenance Due Date Last Done Comments Cervical Cancer Screening Pa p Smear (Age 30 to 64) Every 3 Years 1975 Colorectal Cancer Screening Colonoscopy (10 Years) 1975 Annual Physical 1978 Hepatitis C 1993 DTaP, Tdap and Td Vaccines ( 1 - Tdap) 1994 Hepatitis B Vaccines (1 of 3 - 19+ 3-dose series) 1994 Cervical Cancer Screening Pa p with HPV Testing (Age 30 to 64) Every 5 Years 2005 Cervical Cancer Screening with HPV 2005 Mammogram Screening 2015 COVID-19 Vaccine ( - 2023-2 5 season) 2024 Influenza Adult (#1) 2024 06/10/2014 Meningococcal B Vaccine Aged Out No l onger eligible based on patient's age to complete this topic Meningococcal Vaccine Aged Out No pillo geovanny eligible based on patient's age to complete this topic Pneumococcal Vaccine: Pediat rics (0 to 5 Years) and At-Risk Patients (6 to 64 Years) Aged Out No longer eligi ble based on patient's age to complete this topic RSV Immunizations Under 20 Months Aged Out No longer eligible based on patient's age to complete this topic
== END 2024-08-13 11:21 | disposition home or self-care (01) ==
LOC: ANHLAB 11:21
PROVIDERS: PCP Internal Medicine; Visit Provider Nurse Practitioner
DX: R73.03 Prediabetes (principal); E55.9 Vitamin D deficiency, unspecified
CPT/HCPCS: 36415; 80053; 82306; 83036

== ENCOUNTER 2024-11-13 06:35 | Outpatient (CLI) | payer OTHER, SELFPAY ==
--- NOTE | ~2024-11-13 | MR_ITS ---
MRI of the right ankle Clinical history: Plantar fasciitis, Achilles tendinitis Technique: Coronal proton-density and proton-density fat-sat images, axial proton-density and proton- density fat-sat images, and sagittal proton-density and proton-density fat-sat images were acquired. Findings: Syndesmotic ligaments are intact. Anterior and posterior talofibular ligaments, and calcane ofibular ligament are intact. Deltoid ligament is intact. Medial flexor tendons, peroneal tendons, and anterior extensor tendons are intact. There is focal mil d to moderate tendinosis of the very distal Achilles tendon insertion with possible focal interstitia l partial tear at the distal insertion. Small plantar calcaneal spur present. There is mild thickening of the plantar fascia at the calcaneal origin with minimal soft tissue edema adjacent. There is high-grade chondromalacia at the medial corner of the talar dome with subchondral cystic pino nge. Remaining joint spaces and bone marrow signals are unremarkable. No significant joint effusion. Normal signal preserved in the sinus Tarsi. No soft tissue mass evident. Impression: Distal Achilles tendinitis with focal low-grade interstitial tear at the distal Achilles tendon inser tion. Mild plantar fasciitis. Developing osteochondral lesion at the medial corner of the talar dome with high-grade chondromalacia and subchondral cystic change. Reviewed, dictated and finalized at location . Impression: Distal Achilles tendinitis with focal low-grade interstitial tear at the distal Achilles tendon insertion. Mild plantar fasciitis. Developing osteochondral lesion at the medial corner of the talar dome with hig h-grade chondromalacia and subchondral cystic change.
--- OUTSIDE RECORDS SUMMARY | 2024-11-13 06:41 | XMS_ITS | Clinical Summary ---
Author Organization [facility] Address [address] [place] [address] Care Team Providers Care Manager Of Clinical Name Role Phone Unavailable Primary Care Provider [...] HPV 2005 Mammogram Screening 2015 COVID-19 Vaccine (2023-2 5 season) 2024 Meningococcal B Vaccine Aged Out No l onger eligible based on patient's age to complete this topic Meningococcal Vaccine Aged Out No pillo geovanny eligible based on patient's age to complete this topic Pneumococcal Vaccine: Pediat rics (0 to 5 Years) and At-Risk Patients (6 to 49 Years) Aged Out No longer eligible b ased on patient's age to complete this topic RSV Immunizations Under 20 Months Aged Out No longer eligible based on patient's age to complete this topic
--- OUTSIDE RECORDS SUMMARY | 2024-11-13 06:42 | XMS_ITS ---
Author Organization [facility] [place] ([address]) Address [address] [place] [address] Care Team Providers Care Senior Manufacturing Technician Name Role Phone Dyllan Gaitan Primary Care Provider Unavailab Rica Fernandes Unavailable [phone] Dyllan Gaitan Unavailable Unavailable Encounters Encounter Location Date Provider Diagnosis [facility] [address] [place] [address] 12/28/2023 Rica Rincon Plan Of Treatment No Information Progress Notes * Twila RINCON MDOB:1975 (49 yo F)Acc No.[id number]:12/28/2023 SCIT-Aeroallergen Patient: Twila NICHOLE Provider: Jose Manuel Rincon MD :1975 A ge:48 Y S ex:Female Date:12/28/2023 [address] [address] [facility] [place] Pcp:Dyllan Gaitan Subjective: * Chief Complaints: * * Medical History: Objective: * Vitals: Assessment: Plan: * Treatment: * Billing Information: * Visit Code: * Procedure Codes: * Electronic signature of Kailey Rincon MD on 11/13/2024 at 06:41 AM CDT Sign off status: Pending * Provider: Jose Manuel Rincon MD Date: 12/28/2023 Generated for Nilda gonzalez/Vin/Ragini on: 0 11/13/2024 06:41 AM CDT
--- OUTSIDE RECORDS SUMMARY | 2024-11-13 06:42 | XMS_ITS ---
Author Organization [facility] [employer] [place] ([address]) Address [address] [address] Care Team Providers Care Pocket Grinder Operator Name Role Phone Dyllan Gaitan Primary Care Provider Unavailab le Rica Rincon Unavailable [phone] Dyllan Gaitan Unavailable Unavailable [employer], Provider Unavailable Unavailab le REASON FOR VISIT [facility] Conversion Encounter Medications Medication SIG (Take, Route, Frequency, Duration) Notes Start Date End Date Status Azelastine HCl 137 MCG/SPRAY 2 spray(s) intranasally 2 times a day for 30 day(s) Active Fluticasone Propionate 50 MCG/ACT 2 spray(s) in each nostril BID for 30 day(s) Active Lisinopril 10 MG 1 tab(s) orally once a day Active Levocetirizine Dihydrochloride 5 MG 1 tab(s) orally once a day (in the evening) for 30 day(s) Active EpiPen 2-Thaddeus 0.3 MG/0.3ML as directed intramuscularly once for 30 days Active Rosuvastatin Calcium 20 MG 1 tab(s) orally once a day Active Omeprazole 40 MG 1 cap(s) orally once a day Active ETHINYL ESTRADIOL-ETHYNODIOL 35 MCG-1 MG 1 TAB(S) ORALLY ONCE A DAY *Please review for potential replacement for e-prescription and drug interaction check* Active Zoloft 50 MG 1 tab(s) orally once a day Active Encounters Encounter Location Date Provider Diagnosis [facility] [place] [address] 12/23/2023 Provider CAITLIN-Jemma Plan Of Treatment No Information Progress Notes * SERGEY October MDOB:1975 (49 yo F)Acc No.[id number]:12/23/2023 Patient: Jose Manuel WILEY Twila Bre Provider: Javy Easton :1975 A ge:48 Y S ex:Female Date:12/23/2023 Address:[address], [facility] Pcp:Dyllan Gaitan Subjective: * Chief Complaints: [...] Procedure Codes: * Electronic signature of Prov robert TUCKER-Migration on 11/13/2024 at 06:42 AM CDT Sign off status: Pending * Provider: Javy bradshaw Migration Date: 12/23/2023 Generated for Nilda gonzalez/Vin/Ragini on: 0 11/13/2024 06:42 AM CDT
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
--- OUTSIDE RECORDS SUMMARY | 2024-11-13 06:42 | XMS_ITS ---
Author Organization [facility] [employer] [place] ([address]) Address [address] [facility] [address] [place] [address] Care Team Providers Care Applications Instructor Name Role Phone Dyllan Gaitan Primary Care Provider Unavailab Rica Fernandes Unavailable [phone] Dyllan Gaitan Unavailable Unavailable REASON FOR VISIT [facility] - Traditional Schedule Allergy Immunotherapy Encounters Encounter Location Date Provider Diagnosis [facility] [address] [facility] [address] [place] [address] 12/27/2023 Rica Rincon Allergic rhinitis du e [...] * SERGEY October MDOB:1975 (49 yo F)Acc No.[id number]:12/27/2023 SCIT-Aeroallergen Patient: J ONESOctober Provider: Jose Manuel Rincon MD :1975 A ge:48 Y S ex:Female Date:12/27/2023 [address] [facility] Pcp:Dyllan Gaitan Subjective: * Chief Complaints: * [...] Information: * Visit Code: * Procedure Codes: 26964 IMMUNOTHERAPY INJECTIONS. * Electronic signature of Kailey Rincon MD on 11/13/2024 at 06:41 AM CDT Sign off status: Pending * Provider: Jose Manuel Rincon MD Date: 0 12/27/2023 Generated for Nilda gonzalez/Vin/Ragini on: 0 11/13/2024 06:41 AM CDT History and Physical Notes * HPI [...]
== END 2024-11-13 06:36 | disposition home or self-care (01) ==
PROVIDERS: PCP Internal Medicine; Visit Provider Podiatrist Foot & Ankle Surgery
DX: M76.61 Achilles tendinitis, right leg (principal); M72.2 Plantar fascial fibromatosis; S86.011A Strain of right Achilles tendon, initial encounter; X58.XXXA Exposure to other specified factors, initial encounter; M93.971 Osteochondropathy, unspecified, right ankle and foot; M94.271 Chondromalacia, right ankle and joints of right foot
CPT/HCPCS: 73721

== ENCOUNTER 2025-02-11 07:18 | Outpatient (CLI) | payer OTHER, SELFPAY ==
--- OUTSIDE RECORDS SUMMARY | 2025-02-11 07:21 | XMS_ITS | Clinical Summary ---
Author Organization [facility] Address [address] [facility] [place] [address] Care Team Providers Care Freelance Web Designer Name Role Phone Unavailable Primary Care Provider Unavailabl e Source Comments [facility],non-owned Affiliates and Associated Physician Practices is amultiple site organization consisting of ambulatory clinics and hospital sitesin [place], [place], [place] and [place]. This disclosure is being madepursuant to the Care Everywhere program and may not contain all information available regarding this patient. Last updated 18.[facility] [employer] Encounters Date Type Department Care Team Description 12/31/2024 Lab Requisition [facility] - DermPath Lab [address] [place] [address] Angela Perez MD from Last 3 Months Social History Tobacco Use Types Packs/Day Years Used Date Smoking Tobacco: Never Assessed Comments Unknown Sex and Gender Information Value Date Recorded Sex Assigned at Not on file Legal Sex Female 3:21 PM CDT Gender Identity Not on file Sexual Orientation Not on file Plan of Treatment Health Maintenance Due Date Last Done Comments COLOGUARD (AGES 45-75) - COL ON CA SCREENING 1975 COLON MONITORING 1975 COLONOSCOPY - COLON CA SCREENING 1975 CT COLONOGRAPHY - COLON CA SCREENING 1975 Colorectal Cancer Screening 1975 FIT - COLON CA SCREENING 1975 FLEX SIG - COLON CA SCREENING 1975 LIPID TESTING 1975 MAMMOGRAM 1975 HIV SCREENING 1990 HEPATITIS C SCREENING 06/26/1993 DTAP/TDAP/TD VACCINES (1 - Tdap) 1994 HEPATITIS B VACCINE (1 of 3 - 19+ 3-dose series) 1994 PAP SMEAR 1996 COVID-19 VACCINE ( - 2023-2 5 season) 2024 DEPRESSION SCREENING 07/10/2024 INFLUENZA VACCINE (#1) 2025 ZOSTER VACCINE (1 of 2) 2025 HIB VACCINE Aged Out No longer eligi ble based on patient's age to complete this topic HPV VACCINE Aged Out No longer eligi ble based on patient's age to complete this topic MENINGOCOCCAL (Group B) VACC INE SHARED DECISION-MAKING Aged Out No longer eligibl e based on patient's age to complete this topic MENINGOCOCCAL GROUPS A/C/Y/W VACCINE Aged Out No longer eligible b ased on patient's age to complete this topic Procedures Procedure Name Priority Date/Time Associated Diagnosis Comments DERMATOPATHOLOGY Routine 12/31/2024 3:04 PM CDT from Last 3 Months Results * DERMATOPATHOLOGY (12/31/2024 3:04 PM CDT) Case Report Dermatopathology Report Case: [id number] Authorizing Provider: Angela Perez MD Collected: 12/31/2024 03:04 PM Ordering Location: [facility] - Received: 01/02/2025 06:04 AM DermPath Lab Pathologist: Leila Boudreaux MD Specimen: Skin, right lower back 4:10 PM CDT DERMATOPATHOLOGY LABORATORY Final Diagnosis Specimen A. SKIN, right lower back: COMPOUND MELANOCYTIC NEVUS, IRRITATED (D22.5) 4:10 PM CDT DERMATOPATHOLOGY LABORATORY at 1610 CDT Clinical History Nevus; R/O Atypia 4:10 PM CDT DERMATOPATHOLOGY LABORATORY Gross Description Specimen A: Received is one formalin filled container labeled with the patient's name and designated right lower back. The specimen consists of a shave biopsy measuring 2 pieces 5x3x1,3x2x1 mm. Jar 0. 4:10 PM CDT DERMATOPATHOLOGY LABORATORY Microscopic Description Specimen A. SKIN, right lower back: There is melanin pigment in the stratum corneum. There are nests of melanocytes at the dermal-epidermal junction and within the dermis. 4:10 PM CDT DERMATOPATHOLOGY LABORATORY Disclaimer An external and internal positive and negative controls are appropriate for the histochemical, immunohistochemical and immunofluorescence stain(s) in this case (if any), except where stated explicitly. The performance characteristics of the stain(s) cited in this report were developed and its performance characteristic determined by the Dermatopathology Laboratory at [facility], directed by Dr. Efraín Elizondo. These tests need not be, and therefore are not, approved by the [place] Food and Drug Administration. The tests are used for clinical purposes. Billing Codes Specimen Charges Stain Charges 48159 1 5 4:10 PM CDT DERMATOPATHOLOGY LABORATORY Embedded Images 5 4:10 PM CDT DERMATOPATHOLOGY LABORATORY Pathology/Cytolo gy TISSUE SPECIMEN FROM SKIN / Unknown 12/31/2024 3:04 PM CDT 01/02/2025 6:04 AM CDT Angela Perez MD LAB - PATHOLOGY/CYTOLOGY OR DERABLES Final Result DERMATOPATHOLOGY LABORATORY [facility] - Department of Dermatology [facility] [address] [place] [address], [address] [place] [address], [facility] [phone] from Last 3 Months
--- OUTSIDE RECORDS SUMMARY | 2025-02-11 07:21 | XMS_ITS | Clinical Summary ---
Author Organization [facility] Address [address] [place] [address] Care Team Providers Care Motocross Racer Name Role Phone Unavailable Primary Care Provider [...]
--- OUTSIDE RECORDS SUMMARY | 2025-02-11 07:21 | XMS_ITS | Encounter Summary ---
Author Organization [facility] Address [address] [facility] [place] [address] Care Team Providers Care Lump Inspector Name Role Phone Unavailable Primary Care Provider Unavailabl e Encounter Details Date Type Department Care Team (Late st Contact Info) Description 12/31/2024 Lab Requisition [facility] - DermPath Lab [address] [facility] [place] [address] Angela Perez MD [address] [facility] [address] [place] [address] Social History Tobacco Use Types Packs/Day Years Used Date Smoking Tobacco: Never Assessed Comments Unknown Sex and Gender Information Value Date Recorded Sex Assigned at Not on file Legal Sex Female 3:21 PM CDT Gender Identity Not on file Sexual Orientation Not on file documented as of this encounter Plan of Treatment Not on file documented as of this encounter Procedures Procedure Name Priority Date/Time Associated Diagnosis Comments DERMATOPATHOLOGY Routine 12/31/2024 3:04 PM CDT documented in this encounter Results * DERMATOPATHOLOGY (12/31/2024 3:04 PM CDT) Case Report Dermatopathology Report Case: [id number] Authorizing Provider: Angela Perez MD Collected: 12/31/2024 03:04 PM Ordering Location: [facility] Physician [facility] - Received: 01/02/2025 06:04 AM DermPath Lab Pathologist: Leila Boudreaux MD Specimen: Skin, right lower back 4:10 PM CDT DERMATOPATHOLOGY LABORATORY Final Diagnosis Specimen A. SKIN, right lower back: COMPOUND MELANOCYTIC NEVUS, IRRITATED (D22.5) 5 4:10 PM CDT DERMATOPATHOLOGY LABORATORY at 1610 [...] characteristic determined by the Dermatopathology Laboratory at [facility], directed by Dr. Efraín Elizondo. These tests need not be, and therefore are not, approved by the [place] Food and Drug Administration. The tests are used for clinical purposes. Billing Codes Specimen Charges Stain Charges 49717 1 4:10 PM CDT DERMATOPATHOLOGY LABORATORY Embedded Images 4:10 PM CDT DERMATOPATHOLOGY LABORATORY Pathology/Cytolo gy TISSUE SPECIMEN FROM SKIN / Unknown 12/31/2024 3:04 PM CDT 01/02/2025 6:04 AM CDT Angela Perez MD LAB - PATHOLOGY/CYTOLOGY OR DERABLES Final Result DERMATOPATHOLOGY LABORATORY [facility] - Department of Dermatology [address] [place] [address], [facility] [phone] documented in this encounter Visit Diagnoses Not on filedocumented in this encounter
[2025-02-11 08:04] LABS: Hematocrit 42.8 % (37.0-47.0); Hemoglobin 13.9 g/dL (12.0-15.0); Immature Granulocyte Percent A 0.4 % (0-0.5); Lymphocytes Absolute Auto 1.50 K/mm3 (0.9-3.2); Mean Corpuscular HGB Conc 32.5 g/dl (32-36); Mean Corpuscular Hemoglobin 29.5 pg (26-34); Mean Corpuscular Volume 90.9 fl (80-100); Nucleated Red Blood Cells Absolute Auto 0.000 K/mm3 (0.0-0.012); Nucleated Red Blood Cells Perc 0.0 % (0.0-0.2); Platelet Count Result 260 k/mm3 (150-375); Red Blood Count 4.71 M/mm3 (4.2-5.4); White Blood Count 8.4 K/mm3 (4.5-10.0)
[2025-02-11 08:36] LABS: Alanine Aminotransferase 21 U/L (6-35); Albumin Level 4.1 g/dL (3.5-5.1); Alkaline Phosphatase 62 U/L (38-126); Anion Gap 9 mmol/L (4-12); Aspartate Amino Transferase 36 U/L (14-36); Bilirubin,Total 0.8 mg/dL (0.2-1.3); Blood Urea Nitrogen 14 mg/dL (7-17); Calcium 9.3 mg/dL (8.4-10.2); Carbon Dioxide 24 mmol/L (22-30); Chloride 105 mmol/L (98-107); Cholesterol 243 mg/dL (0-200); Estimated Glomerular Filt Rate > 60; Glucose 108 mg/dL (65-110); HDL Direct 69 mg/dL; Potassium 4.3 mmol/L (3.4-5.0); Sodium 138 mmol/L (137-145); Total Protein 7.2 g/dL (6.3-8.2); Triglycerides 117 mg/dL (<150)
[2025-02-11 08:49] LABS: Hemoglobin A1C 6.0 % (<5.7)
== END 2025-02-11 07:19 | disposition home or self-care (01) ==
LOC: ANHLAB 07:19
PROVIDERS: PCP Internal Medicine; Visit Provider Nurse Practitioner
DX: E78.2 Mixed hyperlipidemia (principal); R73.03 Prediabetes; E55.9 Vitamin D deficiency, unspecified; Z13.228 Encounter for screening for other metabolic disorders
CPT/HCPCS: 36415; 80053; 80061; 82306; 83036; 85025

== ENCOUNTER 2025-03-07 12:16 | Outpatient (CLI) | payer OTHER, SELFPAY ==
--- OUTSIDE RECORDS SUMMARY | 2023-12-23 16:30 | XMS_ITS ---
Author Organization [email or web address] [place] ([address]) Address [address] [address] Care Team Providers Care Safety Clothing And Equipment Developer Name Role Phone Dyllan Gaitan Primary Care Provider Unavailab le Rica Rincon Unavailable [phone] Dyllan Gaitan Unavailable Unavailable ZZ-Migration, Provider Unavailable Unavailab le REASON FOR VISIT [facility] To [facility] Conversion Encounter Medications Medication SIG (Take, Route, [...] Active Encounters Encounter Location Date Provider Diagnosis [facility] - [address] [place] [address] 12/23/2023 Provider KerlineZ-Migration Plan Of Treatment No Information Progress Notes * SERGEY October MDOB:1975 (49 yo F)Acc No.[id number]:12/23/2023 Patient: Jose Manuel WILEY October Bre Provider: Javy Easton :1975 A ge:48 Y S ex:Female Date:12/23/2023 Address:[facility] [address] , [facility] Pcp:Dyllan Gaitan Subjective: * Chief Complaints: * [...] Electronic signature of Prov anuelr ZZ-Migration on 03/07/2025 at 12:18 PM CDT Sign off status: Pending * Provider: Javy bradshaw Migration Date: 12/23/2023 Generated for Nilda gonzalez/Vin/Ragini on: 0 03/07/2025 12:18 PM CDT
--- OUTSIDE RECORDS SUMMARY | 2023-12-27 06:00 | XMS_ITS ---
Author Organization [facility] [employer] [place] ([address]) Address [address] [facility] [address] [place] [address] Care Team Providers Care Stretcher Helper Name Role Phone Dyllan Gaitan Primary Care Provider Unavailab Rica Fernandes Unavailable [phone] Dyllan Gaitan Unavailable Unavailable REASON FOR VISIT SCIT - Traditional Schedule Allergy Immunotherapy Encounters Encounter Location Date Provider Diagnosis [facility] [address] [facility] [address] [place] [address] 12/27/2023 Rica Rincon Allergic rhinitis du e [...] * SERGEY October MDOB:1975 (49 yo F)Acc No.[id number]:12/27/2023 SCIT-Aeroallergen Patient: J ONESOctober Provider: Jose Manuel Rincon MD :1975 A ge:48 Y S ex:Female Date:12/27/2023 [facility] [id number] Pcp:Dyllan Gaitan Subjective: * Chief Complaints: * [...] Information: * Visit Code: * Procedure Codes: 75720 IMMUNOTHERAPY INJECTIONS. * Electronic signature of Kailey Rincon MD on 03/07/2025 at 12:19 PM CDT Sign off status: Pending * Provider: Jose Manuel Rincon MD Date: 0 12/27/2023 Generated for Nilda gonzalez/Vin/Ragini on: 0 03/07/2025 12:19 PM CDT History and Physical Notes * [...]
--- OUTSIDE RECORDS SUMMARY | 2023-12-28 06:00 | XMS_ITS ---
Author Organization [facility] [place] ([address]) Address [address] [place] [address] Care Team Providers Care Trial Examiner Name Role Phone Dyllan Gaitan Primary Care Provider Unavailab Rica Fernandes Unavailable [phone] Dyllan Gaitan Unavailable Unavailable Encounters Encounter Location Date Provider Diagnosis [facility] [address] [place] [address] 12/28/2023 Rica Rincon Plan Of Treatment No Information Progress Notes * Twila RINCON MDOB:1975 (49 yo F)Acc No.[id number]:12/28/2023 SCIT-Aeroallergen Patient: Twila NICHOLE Provider: Jose Manuel Rincon MD :1975 A ge:48 Y S ex:Female Date:12/28/2023 [address] [facility] Pcp:Dyllan Gaitan Subjective: * Chief Complaints: * * Medical History: Objective: * Vitals: Assessment: Plan: * Treatment: * Billing Information: * Visit Code: * Procedure Codes: * Electronic signature of Kailey Rincon MD on 03/07/2025 at 12:19 PM CDT Sign off status: Pending * Provider: Jose Manuel Rincon MD Date: 0 12/28/2023 Generated for Nilda gonzalez/Vin/Ragini on: 0 03/07/2025 12:19 PM CDT
--- OUTSIDE RECORDS SUMMARY | 2025-03-07 12:19 | XMS_ITS | Clinical Summary ---
Author Organization [facility] Address [address] [facility] [place] [address] Care Team Providers Care Cloth Tester Name Role Phone Unavailable Primary Care Provider Unavailabl e Source Comments [facility],non-owned Affiliates and Associated Physician Practices is amultiple site organization consisting of ambulatory clinics and hospital sitesin [place], [place], [place] and [place]. This disclosure is being madepursuant to the Care Everywhere program and may not contain all information available regarding this patient. Last updated 18.[facility] [employer] Encounters Date Type Department Care Team Description 12/31/2024 Lab Requisition [facility] - DermPath Lab [address] [place] [phone] Angela Perez MD from Last 3 Months [...] PM CDT) Case Report Dermatopathology Report Case: [id number] Authorizing Provider: Angela Perez MD Collected: 12/31/2024 03:04 PM Ordering Location: [facility] - Received: 01/02/2025 06:04 AM [...] characteristic determined by the Dermatopathology Laboratory at [facility], directed by Dr. Efraín Elizondo. These tests need not be, and therefore are not, approved by the [place] Food and Drug Administration. The tests are used for clinical purposes. Billing Codes Specimen Charges Stain Charges 27681 1 5 4:10 PM CDT DERMATOPATHOLOGY LABORATORY Embedded Images 5 4:10 PM CDT DERMATOPATHOLOGY LABORATORY Pathology/Cytolo gy TISSUE SPECIMEN FROM SKIN / Unknown 12/31/2024 3:04 PM CDT 01/02/2025 6:04 AM CDT Angela Perez MD LAB - PATHOLOGY/CYTOLOGY OR DERABLES Final Result DERMATOPATHOLOGY LABORATORY [facility] - Department of Dermatology [facility] [address] [place] [address], [address] [place] [address], [facility] [phone] from Last 3 Months
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
[2025-03-07 13:02] LABS: Cholesterol 204 mg/dL (0-200); HDL Direct 66 mg/dL; Triglycerides 124 mg/dL (<150)
[2025-03-07 13:32] LABS: Thyroid Stimulating Hormone 2.730 uIU/mL (0.465-4.680)
[2025-03-07 13:45] LABS: Hemoglobin A1C 5.9 % (<5.7)
[2025-03-08 09:08] LABS: FSH 33.8 mIU/mL (.); Vitamin B12 1092 pg/mL (232-1245)
== END 2025-03-07 12:17 | disposition home or self-care (01) ==
LOC: ANHLAB 12:17
PROVIDERS: Nurse Practitioner; PCP Internal Medicine; Visit Provider Student in an Organized Health Care Education/Training Program
DX: R73.03 Prediabetes (principal); N95.1 Menopausal and female climacteric states
CPT/HCPCS: 36415; 80061; 82306; 82607; 83001; 83036; 84443

== ENCOUNTER 2025-03-20 12:41 | Outpatient (CLI) | payer OTHER, SELFPAY ==
--- OUTSIDE RECORDS SUMMARY | 2023-12-23 16:30 | XMS_ITS ---
Author Organization [employer] [place] ([address]) Address [address] [address] Care Team Providers Care Golf Caddy Name Role Phone Dyllan Gaitan Primary Care Provider Unavailab le Rica Rincon Unavailable [phone] Dyllan Gaitan Unavailable Unavailable ZZ-Migration, Provider Unavailable Unavailab le REASON FOR VISIT [facility] To [facility] Conversion Encounter Medications Medication SIG (Take, Route, Frequency, Duration) Notes Start Date End Date Status Azelastine HCl 137 MCG/SPRAY 2 spray(s) intranasally 2 times a day; Duration: 30 day(s) Active Fluticasone Propionate 50 MCG/ACT 2 spray(s) in each nostril BID; Duration: 30 day(s) Active Lisinopril 10 MG 1 tab(s) orally once a day Active Levocetirizine Dihydrochloride 5 MG 1 tab(s) orally once a day (in the evening); Duration: 30 day(s) Active EpiPen 2-Thaddeus 0.3 MG/0.3ML as directed intramuscularly once; Duration: 30 days Active Rosuvastatin Calcium 20 MG 1 tab(s) orally once a day Active Omeprazole 40 MG 1 cap(s) orally once a day Active ETHINYL ESTRADIOL-ETHYNODIOL 35 MCG-1 MG 1 TAB(S) ORALLY ONCE A DAY *Please review for potential replacement for e-prescription and drug interaction check* Active Zoloft 50 MG 1 tab(s) orally once a day Active Encounters Encounter Location Date Provider Diagnosis [facility] - [address] [place] [address] 12/23/2023 Provider KerlineZ-Migration Plan Of Treatment No Information Progress Notes * SERGEY October MDOB:1975 (49 yo F)Acc No.[id number]:12/23/2023 Patient: Jose Manuel WILEY October Bre Provider: Javy Easton :1975 A ge:48 Y S ex:Female Date:12/23/2023 Address:[facility] [address] , [facility] Pcp:Dyllan Gaitan Subjective: * Chief Complaints: * 1 . Multum To Medispan Conversion Encounter. * Medical History: * Medications: T aking EpiPen 2-Thaddeus 0.3 MG/0.3ML Solution Auto-injector as directed intramuscularly once , Taking Levocetirizine Dihydrochloride 5 MG Tablet 1 tab(s) orally once a day (in the evening) , Taking Fluticasone Propionate 50 MCG/ACT Suspension 2 spray(s) in each nostril BID , Taking Azelastine HCl 137 MCG/SPRAY Solution 2 spray(s) intranasally 2 times a day , Taking EpiPen 2-Thaddeus 0.3 MG/0.3ML Solution Auto- injector as directed intramuscularly once , Taking Levocetirizine Dihydrochloride 5 MG Tablet 1 tab(s) orally once a day (in the evening) , Taking Fluticasone Propionate 50 MCG/ACT Suspension 2 spray(s) in each nostril BID , Taking Azelastine HCl 137 MCG/SPRAY Solution 2 spray(s) intranasally 2 times a day , Taking Lisinopril 10 MG Tablet 1 tab(s) orally once a day , Taking ETHINYL ESTRADIOL-ETHYNODIOL 35 MCG-1 MG TABLET 1 TAB(S) ORALLY ONCE A DAY , Notes to Pharmacist: *Please review for potential replacement for e-prescription and drug interaction check*, Taking Zoloft 50 MG Tablet 1 tab(s) orally once a day , Taking Rosuvastatin Calcium 20 MG Tablet 1 tab(s) orally once a day , Taking Omeprazole 40 MG Capsule Delayed Release 1 cap(s) orally once a day Objective: * Vitals: Assessment: Plan: * Treatment: * Billing Information: * Visit Code: * Procedure Codes: * Electronic signature of Prov anuelr ZZ-Migration on 03/20/2025 at 02:16 PM CDT Sign off status: Pending * Provider: Javy bradshaw Migration Date: 0 12/23/2023 Generated for Nilda gonzalez/Vin/Ragini on: 0 03/20/2025 02:16 PM CDT
--- OUTSIDE RECORDS SUMMARY | 2023-12-27 06:00 | XMS_ITS ---
Author Organization [facility] [employer] [facility] [employer] [place] ([address]) Address [address] [facility] [address] [place] [address] Care Team Providers Care Commercial Construction Project Manager Name Role Phone Dyllan Gaitan Primary Care Provider Unavailab Rica Fernandes Unavailable [phone] Dyllan Gaitan Unavailable Unavailable REASON FOR VISIT SCIT - Traditional Schedule Allergy Immunotherapy Encounters Encounter Location Date Provider Diagnosis [facility] [address] [facility] [address] [place] [address] 12/27/2023 Rica Rincon Allergic rhinitis du e to pollen J30.1 ; Other allergic rhinitis J30.89 ; Allergic rhinitis due to animal (cat) (dog) hair and dander J30.81 and Other chronic allergic conjunctivitis H10.45 Assessments Encounter Date Diagnosis (ICD Code) Assessment Notes Treatment Notes Treatment Clinical Notes Section Notes 12/27/2023 Allergic rhinitis due to pollen (ICD-10 - J30.1) 12/27/2023 Other allergic rhinitis (ICD-10 - J30.89) 12/27/2023 Allergic rhinitis due to animal (cat) (dog) hair and dander (ICD-10 - J30.81) 12/27/2023 Other chronic allergic conjunctivitis (ICD-10 - H10.45) Plan Of Treatment Next Appt Details Follow Up: As scheduled, Magdalene son: Progress Notes * SERGEY October MDOB:1975 (49 yo F)Acc No.[id number]:12/27/2023 SCIT-Aeroallergen Patient: J ONESOctober Provider: Jose Manuel Rincon MD :1975 A ge:48 Y S ex:Female Date:12/27/2023 [address] [facility] Pcp:Dyllan Gaitan Subjective: * Chief Complaints: * 1 . SCIT - Traditional Schedule Allergy Immunotherapy. * HPI: * Introduction: The patient is here for scheduled immunotherapy. Please see the attached specialty form regarding the specifics of the administration of these vaccines. As per our protocol, they must undergo a screening health questionnaire (medication changes, reaction(s) to last immunotherapy dose(s), current health status, ACT (if appropriate), self-injectable epinephrine on patient(?) and peak flow (if appropriate)). Also, the patient must wait in our office for 30 minutes after receiving the vaccine(s). Furthermore, every patient must have an epinephrine pen (self-injectable) with them at the time of administration--and carry if for the following 1.5 hours after they leave our office. The patient must also have taken their antihistamine the day of the injection, preferably 2 hours prior. The consent form for SCIT (subcutaneous immunotherapy) is on file. * Medical History: Objective: * Vitals: Assessment: * Assessment: 1. A llergic rhinitis due to pollen - J30.1 (Primary) 2 . O ther allergic rhinitis - J30.89 3 . A llergic rhinitis due to animal (cat) (dog) hair and dander - J30.81 4 . O ther chronic allergic conjunctivitis - H10.45 Plan: * Treatment: * Procedure Codes: 9 5117 IMMUNOTHERAPY INJECTIONS * Preventive Medicine: Counseling: E xercise A void heavy lifting on days of allergy immunotherapy. M edication instruction: I njectable epinephrine education and instruction w/ discussion of signs and symptoms of anaphylaxis and reasons to seek urgent or emergent care, Watch for side effects of prescribed medications. E ducation: A ble to return demonstration of self-injectable epinephrine. * Follow Up: A s scheduled * Billing Information: * Visit Code: * Procedure Codes: 44746 IMMUNOTHERAPY INJECTIONS. * Electronic signature of Kailey Rincon MD on 03/20/2025 at 02:17 PM CDT Sign off status: Pending * Provider: Jose Manuel Rincon MD Date: 0 12/27/2023 Generated for Nilda gonzalez/Vin/Ragini on: 0 03/20/2025 02:17 PM CDT History and Physical Notes * HPI (History of Present Illness) Category Sub-Category Detail Notes Category Not es *Introduction The patient is here for scheduled immunotherapy. Please see the attached specialty form regarding the specifics of the administration of these vaccines. As per our protocol, they must undergo a screening health questionnaire (medication changes, reaction(s) to last immunotherapy dose(s), current health status, ACT (if appropriate), self-injectable epinephrine on patient(?) and peak flow (if appropriate)). Also, the patient must wait in our office for 30 minutes after receiving the vaccine(s). Furthermore, every patient must have an epinephrine pen (self-injectable) with them at the time of administration--and carry if for the following 1.5 hours after they leave our office. The patient must also have taken their antihistamine the day of the injection, preferably 2 hours prior. The consent form for SCIT (subcutaneous immunotherapy) is on file.
--- OUTSIDE RECORDS SUMMARY | 2023-12-28 06:00 | XMS_ITS ---
Author Organization [facility] - [facility] [place] ([address]) Address [address] [place] [address] Care Team Providers Care Ceramic Tile Installer Name Role Phone Dyllan Gaitan Primary Care Provider Unavailab Rica Fernandes Unavailable [phone] Dyllan Gaitan Unavailable Unavailable Encounters Encounter Location Date Provider Diagnosis [facility] [address] [place] [address] 12/28/2023 Rica Rincon Plan Of Treatment No Information Progress Notes * Twila RINCON MDOB:1975 (49 yo F)Acc No.[id number]:12/28/2023 SCIT-Aeroallergen Patient: Twila NICHOLE Provider: Jose Manuel Rincon MD :1975 A ge:48 Y S ex:Female Date:12/28/2023 [facility] [address] [facility] Pcp:Dyllan Gaitan Subjective: * Chief Complaints: * * Medical History: Objective: * Vitals: Assessment: Plan: * Treatment: * Billing Information: * Visit Code: * Procedure Codes: * Electronic signature of Kailey Rincon MD on 03/20/2025 at 02:17 PM CDT Sign off status: Pending * Provider: Jose Manuel Rincon MD Date: 0 12/28/2023 Generated for Nilda gonzalez/Vin/Ragini on: 0 03/20/2025 02:17 PM CDT
--- NOTE | ~2025-03-20 | MM_ITS ---
EXAMINATION: MM screening analy BI w ez HISTORY: Screening TECHNIQUE: Craniocaudal and mediolateral oblique 3-D tomosynthesis images were obtained and synthetic 2-D images were generated. CAD analysis was submitted and interpreted. COMPARISON: Comparison to multiple prior studies sequentially, with oldest reviewed study dated , 08/13/2016 BREAST PARENCHYMAL COMPOSITION: There are scattered areas of fibroglandular density. FINDINGS: There is no evidence of suspicious mass, calcification, or architectural distortion to suggest malignancy in either breast. IMPRESSION: 1. No mammographic evidence of malignancy. 2. Recommend routine screening mammography in one year. BI-RADS Category 1: Negative Reviewed, dictated and finalized at location B.
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
--- OUTSIDE RECORDS SUMMARY | 2025-03-20 14:17 | XMS_ITS | Patient Health Record ---
Author Organization [facility] [employer] [facility] Address [address] [place] [address] Care Team Providers Care Youth Minister Name Role Phone Gonzalez Go Unavailable [phone] Reason For Referral No Information Medications Medication [...] Insured Coverage Start Date Coverage End Date [facility] [address] [place] [address] [id number] LEON RINCON Spouse - patient is the spouse of the insured Medical (General) History Surgical History Surgery Date(Month/Year) Other Bladder Sling 07/23/2021 Any surgical history 12/13/2005
== END 2025-03-20 12:42 | disposition home or self-care (01) ==
PROVIDERS: PCP Internal Medicine; Visit Provider Student in an Organized Health Care Education/Training Program
DX: Z12.31 Encounter for screening mammogram for malignant neoplasm of breast (principal)
CPT/HCPCS: 77063; 77067

== ENCOUNTER 2025-07-02 09:07 | Inpatient (IN) | payer OTHER, SELFPAY ==
--- NOTE | ~2025-07-02 | XR_ITS ---
EXAMINATION: XR retrograde pyelo w/stent RT DATE: 07/04/2025 14:20 INDICATION: Right internal ureteral stent placement TECHNIQUE: Fluoroscopic images from a right internal ureteral stent placement are submitted for review. 14 seconds of fluoroscopy time. FINDINGS: There is a right double-J internal ureteral stent projecting in expected position, with proximal Warrior loop at the level of the renal pelvis and distal loop in the pelvis within the bladder lumen. IMPRESSION: 1. Right internal ureteral stent placement. Please refer to real-time procedural findings for details. Reviewed, dictated and finalized at location O. TERED WORKSHOP WORKER IMPRESSION: 1. Right internal ureteral stent placement. Please refer to real-time procedu ral findings for details.
--- NOTE | ~2025-07-02 | CT_ITS ---
EXAMINATION: CT abdomen pelvis w con DATE: 07/02/2025 13:36 INDICATION: Abdominal pain TECHNIQUE: Computed tomography (CT) of the abdomen and pelvis was performed with 100 mL Omnipaque-350 intravenous contrast. Automated exposure control and iterative reconstruction technique were employed. The dose-length product was 497.63 mGy-cm. COMPARISON: None FINDINGS: Lung bases are clear. Heart size is normal. No pericardial or pleural effusion. Small sliding-type hiatal hernia. Typical location for a small region of hypodense focal hepatic steatosis along the ligamentum teres. Gallbladder, spleen, pancreas, bilateral adrenal glands are normal. 7 mm macroscopic fat attenuation angiomyolipomas at the posterior mid left kidney. 3.5 similar right renal cyst. There is severe right hydronephrosis with transition point at the ureteropelvic junction which is without evident obstructing stone or mass. There is corresponding mildly delayed right nephrogram suggesting the hydronephrosis physiologically significant. Mild right perinephric stranding. Bowels including the appendix are normal. Bladder, anteverted uterus and bilateral adnexa are unremarkable. No free intraperitoneal gas or fluid. No pathologically enlarged abdominal or pelvic lymphadenopathy. 25 degrees lumbar levoscoliosis with moderate to severe right-sided predominant disc height loss at the apex of cur vature at L2-L3. Otherwise mild lumbar and lower thoracic spondylosis.. IMPRESSION: 1. Right UPJ obstruction with severe right hydronephrosis, delayed right nephrogram and mild right perinephric stranding but without evident obstructing stone or mass at the ureteropelvic junction. Correlate with urinalysis. Reviewed, dictated and finalized at location A. NESS INFORMATION MANAGER IMPRESSION: 1. Right UPJ obstruction with severe right hydronephrosis, delayed right nephro gram and mild right perinephric stranding but without evident obstructing stone or mass at the ureteropelvic junction. Correlate with urinalysis.
--- NOTE | ~2025-07-02 | NM_ITS ---
EXAMINATION: NM renal flow and function DATE: 07/04/2025 10:28 INDICATION: Right UPJ obstruction TECHNIQUE: 8.1 mCi Tc-99m MAG3 was administered IV. The patient was scanned in the supine position. A posterior abdominal radionuclide angiogram was obtained. A subsequent time course of static images of the kidneys, ureters, and bladder was obtained. COMPARISON: CT dated 07/02/2025 FINDINGS: The posterior abdominal radionuclide angiogram and sequential static images show normal size, position, and morphology of the kidneys. There is a central photopenic defect at the right renal hilum which corresponds to the hydronephrosis seen on prior CT. Peak renal parenchymal uptake was 6.5 min in left kidney and 25.5 min in right kidney (normal peak 3-5 minutes). The relative early renal uptake was 60% on the left and 40% on the right (<40% is abnormal). No abnormalities of the ureters or bladder are seen. T1/2 for clearance of activity from the left kidney and proximal collecting system was 17 minutes. T1/2 for clearance of activity from the right kidney and proximal collecting system was indeterminate with continually rising renal activity curve. IMPRESSION: 1. Right hydronephrosis with decreased right renal function accounting for only 40% to total renal function. 2. Severe delayed activity excretion from the right kidney with continually rising renal activity curve consistent with high-grade obstruction. 3. Mildly delayed activity clearance from the left kidney without evident hydronephrosis in the current or prior study to suggest obstruction and this more likely reflects artifact of Lasix administered a few hours prior to the study. Reviewed, dictated and finalized at location A. WRITER IMPRESSION: 1. Right hydronephrosis with decreased right renal function accounting for onl y 40% to total renal function. 2. Severe delayed activity excretion from the right kidney with continually ri sing renal activity curve consistent with high-grade obstruction. 3. Mildly delayed activity clearance from the left kidney without evident hydro nephrosis in the current or prior study to suggest obstruction and this more li rom reflects artifact of Lasix administered a few hours prior to the study.
--- OUTSIDE RECORDS SUMMARY | 2025-07-02 09:09 | XMS_ITS | Clinical Summary ---
Author Organization [facility] [employer] Address [address] [place] [address] Care Team Providers Care Technical Services Rep Name Role Phone Unavailable Primary Care Provider Unavailabl e Source Comments [facility] [employer],non-owned Affiliates and Associated Physician Practices is amultiple site organization consisting of ambulatory clinics and hospital sitesin [place], [place], [place] and [place]. This disclosure is being madepursuant to the Care Everywhere program and may not contain all information available regarding this patient. Last updated 18.[facility] [employer] Social History Tobacco Use Types Packs/Day Years [...] 19+ 3-dose series) 1994 PAP SMEAR 1996 DEPRESSION SCREENING 07/10/2024 COVID-19 VACCINE (1 - 2024-2 6 season) 2025 INFLUENZA VACCINE (#1) 2025 ZOSTER VACCINE (1 [...]
--- OUTSIDE RECORDS SUMMARY | 2025-07-02 09:09 | XMS_ITS | Encounter Summary ---
Author Organization [facility] Address [address] [place] [address] Care Team Providers Care Glass Cut Off Tender Name Role Phone Unavailable Primary Care Provider Unavailabl e Encounter Details Date Type Department Care Team (Late st Contact Info) Description 12/31/2024 Lab Requisition [facility] - DermPath Lab [address] [place] [address] Angela Perez MD [address] [facility] [address] [place] [address] Social History Tobacco Use Types Packs/Day Years [...] PM CDT) Case Report Dermatopathology Report Case: [id number] Authorizing Provider: Angela Perez MD Collected: 12/31/2024 03:04 PM Ordering Location: [facility] - Received: 01/02/2025 06:04 AM DermPath Lab [...] characteristic determined by the Dermatopathology Laboratory at [facility], directed by Dr. Efraín Elizondo. These tests need not be, and therefore are not, approved by the [place] Food and Drug Administration. The tests are used for clinical purposes. Billing Codes Specimen Charges Stain Charges 35120 1 4:10 PM CDT DERMATOPATHOLOGY LABORATORY Embedded Images 4:10 PM CDT DERMATOPATHOLOGY LABORATORY Pathology/Cytolo gy TISSUE SPECIMEN FROM SKIN / Unknown 12/31/2024 3:04 PM CDT 01/02/2025 6:04 AM CDT Angela Perez MD LAB - PATHOLOGY/CYTOLOGY OR DERABLES Final Result DERMATOPATHOLOGY LABORATORY [facility] - Department of Dermatology [address] [place] [address], [facility] [phone] documented in this encounter Visit Diagnoses Not on filedocumented in this encounter
--- OUTSIDE RECORDS SUMMARY | 2025-07-02 09:09 | XMS_ITS | Clinical Summary ---
Author Organization [facility] Address [address] [place] [address] Care Team Providers Care Renewable Energy Engineer Name Role Phone Unavailable Primary Care Provider [...] HPV 2005 Mammogram Screening 2015 COVID-19 Vaccine (2024-2 6 season) 2025 Influenza Adult (#1) 2025 06/10/2014 Hepatitis A Vaccines Aged Out No long er eligible based on patient's age to complete this topic Meningococcal B Vaccine Aged Out No l onger eligible based on patient's age to complete this topic Meningococcal Vaccine Aged Out No pillo geovanny eligible based on patient's age to complete this topic Pneumococcal Vaccine: Pediat rics (0 to 5 Years) and At-Risk Patients (6 to 49 Years) Aged Out No longer eligi ble based on patient's age to complete this topic RSV Immunizations Under 20 Months Aged Out No longer eligible based on patient's age to complete this topic
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
--- OUTSIDE RECORDS SUMMARY | 2025-07-02 09:09 | XMS_ITS | Patient Health Record ---
Author Organization [facility] [employer] [facility] Address [address] [place] [address] Care Team Providers Care Game Farm Helper Name Role Phone Gonzalez Go Unavailable [phone] Reason For Referral No Information Medications Medication [...] Insured Coverage Start Date Coverage End Date [facility] [address] [place] [address] [id number] LEON RINCON Spouse - patient is the spouse of the insured Medical (General) History Surgical History Surgery Date(Month/Year) Other Bladder Sling 07/23/2021 Any surgical history 12/13/2005
[2025-07-02 09:53] VITALS: BP 151/84; PULSE 66; RESP 20; TEMP 37; O2SAT 100
[2025-07-02 11:12] VITALS: BP 163/82; PULSE 60; RESP 14; TEMP 37; O2SAT 100
--- NOTE | 2025-07-02 12:21 | ED.ABDPAIN ---
HPI - Abdominal Pain General Chief Complaint: Abdominal Pain Stated Complaint: abd pain x 4 days, nausea Time Seen by Provider: 07/02/25 12:10 Source: patient Mode of arrival: ambulatory Limitations: no limitations History of Present Illness HPI narrative: 50 YEARS OLD WHITE FEMALE CAME TO THE ED BY PRIVATE CAR FROM HOME COMPLAINING OF MID ABDOMINAL PAIN INTERMITTENT STARTED 4 DAYS AGO, LATELY PAIN GOT WORSE AT THE RIGHT FLANK AREA. SHE DENIES AGGRAVATING OR RELIEVING FACTORS, ASSOCIATED WITH NAUSEA AND FREQUENT VOMITING. SHE DENIES ANY FEVER CHILLS DIARRHEA CONSTIPATION VAGINAL BLEEDING OR DISCHARGE OR URINARY SYMPTOMS. HISTORY OF HYPERLIPIDEMIA HYPERTENSION DEPRESSION CURRENTLY ZEPBOUND FOR WEIGHT LOSS. STARTED 2024, DOSE WAS INCREASED 1 WEEK AGO. PATIENT DENIED CIGARETTE SMOKING, ALCOHOL DRINKING, USES MARIJUANA ALMOST DAILY. NO HISTORY OF ABDOMINAL SURGERY. Related Data Home Medications ?Medication ?Instructions ?Recorded ?Confirmed ?Last Taken ?Type cholecalciferol (vitamin D3) 25 25 mcg PO DAILY 08/10/23 02/14/25 Unknown History mcg (1,000 unit) capsule ginkgo biloba 40 mg tablet 40 mg PO DAILY 08/10/23 02/14/25 Unknown History magnesium 200 mg tablet 200 mg PO DAILY 08/10/23 02/14/25 Unknown History multivitamin 1 tablet PO DAILY 08/10/23 02/14/25 Unknown History Allergies Allergy/AdvReac Type Severity Reaction Status Date / Time No Known Allergies Allergy Verified 07/02/25 11:14 Review of Systems Review of Systems: All systems reviewed & are unremarkable except as noted in HPI and below PMFSH Past Medical History Medical History Screening mammogram, encounter for Cataract Chronic GERD Anxiety High cholesterol Surgical History Surgical History History of orthopedic surgery left leg hardware H/O midurethral sling procedure History of carpal tunnel surgery Lower extremity surgery planned Family History Family History Father Depression Hypertension Family history of emphysema Family history of bipolar disorder Mother Diabetes mellitus Hypertension Family history of arthritis Family history of bipolar disorder Family history of malignant neoplasm of uterus Social History Social History Smoking packs per day: 1 Smoking cigarettes per day: 20.0 Years smoked: 3 Smoking pack-years: 3.00 Smoking status: Never smoker Second hand tobacco smoke exposure: No Smoking end date: 07/10/96 Alcohol intake: current Alcohol use details: social 3 a month Substance use: current Substance use type: marijuana Lack of Transportation: No Lack of Food: Never True Current Housing: I Have Housing Concerned About Future Housing: No Difficulty Paying Gas/Electric Bills: No Difficulty Paying for Meds: No Currently Unemployed: No Education: Associate Degree Difficulty w/ Childcare or Family Care: No Living arrangements: with family Additional living arrangements comments: 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 Gender identity (if verbalized by the patient): Female Sexual Orientation (if Verbalized by the Patient): Straight or Heterosexual Spiritual care concerns: No Exam Narrative: GENERAL APPEARANCE: WELL-DEVELOPED, WELL-NOURISHED SKIN: NORMAL COLOR HEAD: NORMOCEPHALIC, NONTRAUMATIC EYES: CLEAR CONJUNCTIVA ENT: OROPHARYNX NORMAL, EARS NORMAL, NOSE NORMAL NECK: SUPPLE, NONTENDER CHEST AND RESPIRATORY: AIRWAY PATENT, NO RESPIRATORY DISTRESS, NO ACCESSORY MUSCLE USE HEART: REGULAR RATE/RHYTHM ABDOMEN: SOFT, RIGHT FLANK TENDERNESS, NO ORGANOMEGALY, QUIET BOWEL SOUNDS VASCULAR: NORMAL PERIPHERAL PULSES, NORMAL CAPILLARY REFILL. MUSCULOSKELETAL: NORMAL RANGE OF MOTION, NONTENDER BACK NEUROLOGIC: ALERT AND ORIENTED ?3, AQUATIC CENTRE MANAGER IS NORMAL TESTED, NO GROSS MOTOR DEFICIT Course Consultations Urology: Time of Consult: 15:43 I have discussed the care of this patient with the following provider: DR DO, ADMIT TO HOSPITALIST Vital Signs Vital signs: Vital Signs Temperature 37.0 C 07/02/25 09:53 Pulse Rate 66 07/02/25 09:53 Respiratory Rate 20 07/02/25 09:53 Blood Pressure 151/84 H 07/02/25 09:53 Pulse Oximetry 100 07/02/25 09:53 Temperature 37.0 C 07/02/25 15:56 Pulse Rate 66 07/02/25 15:56 Respiratory Rate 14 07/02/25 15:56 Blood Pressure 171/95 H 07/02/25 15:56 Pulse Oximetry 98 07/02/25 15:56 MDM [facility] Narrative Medical decision making narrative: PATIENT PRESENTS WITH RIGHT FLANK PAIN VITAL SIGNS ARE STABLE PHYSICAL EXAMINATION CONSISTENT WITH TENDERNESS RIGHT FLANK AND EPIGASTRIC AREA DIFFERENTIAL DIAGNOSIS INCLUDE GASTRITIS, ESOPHAGITIS, URINARY TRACT INFECTION, KIDNEY STONE, COLITIS, DIVERTICULITIS, CHOLECYSTITIS, APPENDICITIS, CONSTIPATION BLOOD WORKUP TODAY INCLUDES CBC, CMP, LIPASE SHOWED WBC 12.5, HEMOGLOBIN 17.1, OTHERWISE UNREMARKABLE URINALYSIS: CLOUDY 3+ KETONE, 3+ BLOOD CT ABDOMEN AND PELVIS WITH IV CONTRAST SHOWED LARGE RIGHT HYDRONEPHROSIS, NO STONES OR MASS. PATIENT STILL IN PAIN ADMIT TO HOSPITALIST, DISCUSSED WITH DR. REESE THE UROLOGIST ON-CALL Differential Diagnosis Differential Diagnosis: ABOVE Lab Data MDM Lab Attestation statement: I personally reviewed the patient's lab results. 07/02/25 12:48 07/02/25 12:48 Labs: Lab Results 07/02/25 07/02/25 Range/Units 12:37 12:48 WBC 12.5 H (4.5-10.0) K/mm3 RBC 5.65 H (4.2-5.4) M/mm3 Hgb 17.1 H D (12.0-15.0) g/dL Hct 49.1 H (37.0-47.0) % MCV 86.9 (80-100) fl MCH 30.3 (26-34) pg MCHC 34.8 (32-36) g/dl RDW 12.7 (11.5-14.5) % Plt Count 279 (150-375) k/mm3 MPV 10.3 (7.4-10.4) fl Immature Gran % (Auto) 0.5 (0-0.5) % Neut % (Auto) 75.4 H (45.5-73.1) % Lymph % (Auto) 11.1 L (18.3-44.2) % Ray % (Auto) 12.4 H (2.6-8.5) % Eos % (Auto) 0.2 (0-4.4) % Baso % (Auto) 0.4 (0.2-1.2) % Lymph # (Auto) 1.38 (0.9-3.2) K/mm3 Ray # (Auto) 1.6 H (0.1-0.6) K/mm3 Eos # (Auto) 0.0 (0-0.3) K/mm3 Baso # (Auto) 0.1 (0.0-0.1) K/mm3 Abs Immat Gran (auto) 0.06 H (0.00-0.031) K/mm3 Absolute Neuts (auto) 9.4 H (1.3-6.7) K/mm3 Absolute Nucleated RBC 0.000 (0.0-0.012) K/mm3 Nucleated RBC % 0.0 (0.0-0.2) % Sodium 140 (137-145) mmol/L Potassium 3.4 (3.4-5.0) mmol/L Chloride 105 (98-107) mmol/L Carbon Dioxide 22 (22-30) mmol/L Anion Gap 13 H (4-12) mmol/L BUN 21 H (7-17) mg/dL Creatinine 1.06 H (0.7-1.0) mg/dL Estim Creat Clear Calc 60 ml/min Estimated GFR 55 L (59 - ) Glucose 120 H (65-110) mg/dL Calcium 10.0 (8.4-10.2) mg/dL Total Bilirubin 1.5 H (0.2-1.3) mg/dL AST 34 (14-36) U/L ALT 24 (6-35) U/L Alkaline Phosphatase 89 (38-126) U/L Total Protein 8.9 H (6.3-8.2) g/dL Albumin 5.1 (3.5-5.1) g/dL Lipase 81 (23-300) U/L Urine Color Yellow (Yellow) Urine Appearance Cloudy H (Clear) Urine pH 6.0 (5.0-9.0) Ur Specific [place] 1.032 (1.001-1.035) Urine Protein 1+ H (Negative) mg/dL Urine Glucose (UA) Negative (Negative) mg/dL Urine Ketones 3+ H (Negative) mg/dL Ur Blood (Man) 3+ H (Negative) Urine Nitrate Negative (Negative) Urine Bilirubin Negative (Negative) Urine Urobilinogen 1.0 (<2.0) mg/dL Leukocyte Esterase Rfl Trace H (Negative) NAS/UL Urine RBC >100 H (0-2) /hpf Urine WBC 0-5 (0-3) /hpf Ur Squamous Epith Cells None seen (Few) /hpf Urine Bacteria None seen /hpf Urine Casts 0-2 Imaging Data Radiologist's impression: ITS Impressions Abdomen/Pelvis CT 07/02/25 13:39 IMPRESSION: 1. Right UPJ obstruction with severe right hydronephrosis, delayed right nephrogram and mild right perinephric stranding but without evident obstructing stone or mass at the ureteropelvic junction. Correlate with urinalysis. Critical Care Time Critical Care Time Critical Care Time: No Discharge Plan Discharge Clinical Impression: Hydronephrosis of right kidney, Hematuria Patient Disposition: Still a Patient Condition: Stable Additional Instructions: ADMIT TO HOSPITALIST Patient Language: Solomon Islander Prescriptions: No Action omeprazole 40 mg capsule,delayed release(DR/EC) 40 mg PO DAILY Qty: 90 3RF multivitamin Tablet 1 tablet PO DAILY magnesium 200 mg tablet 200 mg PO DAILY ginkgo biloba 40 mg tablet 40 mg PO DAILY Rx Instructions: give with meal/snack cholecalciferol (vitamin D3) 25 mcg (1,000 unit) capsule 25 mcg PO DAILY estradiol 0.01 % (0.1 mg/gram) cream 1 g vaginal 3XW Qty: 42.5 1RF sertraline 50 mg tablet 50 mg PO DAILY Qty: 90 3RF rosuvastatin 20 mg tablet 20 mg PO DAILY Qty: 90 1RF estradiol-norethindrone acet [Activella] 1-0.5 mg tablet 1 tablet PO DAILY Qty: 28 11RF hydroxyzine HCl 25 mg tablet 25 mg PO BID PRN (Reason: anxiety) Qty: 60 0RF lisinopril 10 mg tablet 10 mg PO DAILY Qty: 90 1RF Zepbound 10 mg/0.5 mL pen injector 10 mg subcut WEEKLY Qty: 2 0RF ondansetron 4 mg tablet,disintegrating 4 mg PO Q8H PRN (Reason: nausea and vomiting) Qty: 10 1RF Follow-up/Referrals: Dyllan Gaitan DO [Primary Care Provider, Internal Medicine]
[2025-07-02 12:53] LABS: Add Urine Microscopic? YES; Appearance Urine Cloudy (Clear); Glucose Urine UA Negative (Negative); Leukocyte Esterase Ur Trace LEU/UL (Negative); Nitrate Urine Negative (Negative); Non Pathogenic Casts 0-2; Specific Grav Ur 1.032 (1.001-1.035)
[2025-07-02] MEDS: SODIUM CHLORIDE 0.9% IV 1,000 ML 999 ML IV CONT (12:54)
[2025-07-02] MEDS: ONDANSETRON INJ 4 MG/2 ML VIAL IV PUSH ×2 (12:55→22:16)
[2025-07-02 12:56] LABS: Hematocrit 49.1 % (37.0-47.0); Hemoglobin 17.1 g/dL (12.0-15.0); Immature Granulocyte Percent A 0.5 % (0-0.5); Lymphocytes Absolute Auto 1.38 K/mm3 (0.9-3.2); Mean Corpuscular HGB Conc 34.8 g/dl (32-36); Mean Corpuscular Hemoglobin 30.3 pg (26-34); Mean Corpuscular Volume 86.9 fl (80-100); Nucleated Red Blood Cells Absolute Auto 0.000 K/mm3 (0.0-0.012); Nucleated Red Blood Cells Perc 0.0 % (0.0-0.2); Platelet Count Result 279 k/mm3 (150-375); Red Blood Count 5.65 M/mm3 (4.2-5.4); White Blood Count 12.5 K/mm3 (4.5-10.0)
[2025-07-02] MEDS: HYDROmorphone HCL INJ (*CRX) 1 MG/ML SYR 0.5 MG IV PUSH ×2 (12:56→20:42)
[2025-07-02 13:15] LABS: Alanine Aminotransferase 24 U/L (6-35); Albumin Level 5.1 g/dL (3.5-5.1); Alkaline Phosphatase 89 U/L (38-126); Anion Gap 13 mmol/L (4-12); Aspartate Amino Transferase 34 U/L (14-36); Bilirubin,Total 1.5 mg/dL (0.2-1.3); Blood Urea Nitrogen 21 mg/dL (7-17); Calcium 10.0 mg/dL (8.4-10.2); Carbon Dioxide 22 mmol/L (22-30); Chloride 105 mmol/L (98-107); Estimated CRCL calculation 60 ml/min; Estimated Glomerular Filt Rate 55; Glucose 120 mg/dL (65-110); Lipase 81 U/L (23-300); Potassium 3.4 mmol/L (3.4-5.0); Sodium 140 mmol/L (137-145); Total Protein 8.9 g/dL (6.3-8.2)
[2025-07-02] MEDS: cefTRIAXone 1 GM in SODIUM CHLORIDE 0.9% IV 50 ML 100 ML IVPB (15:47)
[2025-07-02] MEDS: KETOROLAC 30 MG/ML VIAL (*BKC) IV PUSH (15:55)
[2025-07-02 15:56] VITALS: BP 171/95; PULSE 66; RESP 14; TEMP 37; O2SAT 98
--- NOTE | 2025-07-02 17:58 | P.OPB_ITS ---
Procedure Note - Brief Procedure Note - Brief Date of procedure: 07/02/25 R Hydronephrosis, hematuria Surgeon: Pierre Tate MD Description of procedure: Please note this is not a procedure note. It is a free-text note. Urology notified about this patient this afternoon With right hydronephrosis and flank pain. Her CT scan demonstrates right hydronephrosis with a discrete transition point at the right ureteropelvic junction highly suspicious for chronic ureteropelvic junction obstruction. Her creatinine is within normal limits, although slightly diminished compared to her baseline. She is afebrile and hemodynamically adequate. I spoke with the radiology department at [facility], who indicated that they will able be to do a Lasix renal scan on Monday07/04/2025 To confirm whether or not she has a UPJ obstruction. I also confirmed that Interventional Radiology will be on site on Monday07/04/2025 in case she needs placement of nephrostomy tube. Full consult note and plan to follow tomorrow, but plan at this time is to undergo Lasix renal scan on Monday and possible right nephrostomy tube per interventional radiology if evidence of mechanical obstruction. She may have a diet today (07/02) and tomorrow (07/03) from urology standpoint.
[2025-07-02 18:10] VITALS: BP 141/91; PULSE 72; RESP 14; O2SAT 98
--- NOTE | 2025-07-02 19:38 | PM.IMHP2 ---
H&P: HPI History of Present Illness Date/Time: 07/02/25 19:38 Chief Complaint: Abd pain, nausea/vomiting Narrative: The patient is a 50 year old female hx HTN, bladder sling surgery, who presented for evaluation of abdominal pain and nausea/vomiting, found to have right hydronephrosis. She reports nausea/vomiting and mid abdominal cramping started 4 days ago. Vomiting improved intermittently. No fevers or dysuria. She developed right flank pain today and came to the ER. WBC 12.5, H&H 17.1/49.1, Creatinine 1.06. UA >100 RBC's, No WBC's. 07/02 CT abd/pelvis with contrast showed Right UPJ obstruction with severe right hydronephrosis, delayed right nephrogram and mild right perinephric stranding but without evident obstructing stone or mass at the ureteropelvic junction. Correlate with urinalysis. Urology consulted for right hydronephrosis and flank pain, spoke with the radiology department at [facility], who indicated that they will able be to do a Lasix renal scan on Monday07/04/2025 to confirm whether or not she has a UPJ obstruction. Interventional Radiology will be on site on Monday07/04/2025 in case she needs placement of nephrostomy tube. Plan at this time is to undergo Lasix renal scan on Monday and possible right nephrostomy tube per interventional radiology if evidence of mechanical obstruction. Ok to have a diet today and tomorrow from urology. She received 1 dose of ceftriaxone, dilaudid and toradol for pain Review of Systems Review of Systems: All systems reviewed & are unremarkable except as noted in HPI and below PMFSH Past Medical History Medical History Screening mammogram, encounter for Cataract Chronic GERD Anxiety High cholesterol Surgical History Surgical History History of orthopedic surgery left leg hardware H/O midurethral sling procedure History of carpal tunnel surgery Lower extremity surgery planned Family History Family History Father Depression Hypertension Family history of emphysema Family history of bipolar disorder Mother Diabetes mellitus Hypertension Family history of arthritis Family history of bipolar disorder Family history of malignant neoplasm of uterus Social History Social History Smoking packs per day: 1 Smoking cigarettes per day: 20.0 Years smoked: 3 Smoking pack-years: 3.00 Smoking status: Never smoker Second hand tobacco smoke exposure: No Smoking end date: 07/10/96 Alcohol intake: current Alcohol use details: social 3 a month Substance use: current Substance use type: marijuana Lack of Transportation: No Lack of Food: Never True Current Housing: I Have Housing Concerned About Future Housing: No Difficulty Paying Gas/Electric Bills: No Difficulty Paying for Meds: No Currently Unemployed: No Education: Associate Degree Difficulty w/ Childcare or Family Care: No Living arrangements: with family Additional living arrangements comments: 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 Gender identity (if verbalized by the patient): Female Sexual Orientation (if Verbalized by the Patient): Straight or Heterosexual Spiritual care concerns: No Meds Home Medications and Allergies Home Medications ?Medication ?Instructions ?Recorded ?Confirmed ?Type cholecalciferol (vitamin D3) 25 25 mcg PO DAILY 08/10/23 02/14/25 History mcg (1,000 unit) capsule ginkgo biloba 40 mg tablet 40 mg PO DAILY 08/10/23 02/14/25 History magnesium 200 mg tablet 200 mg PO DAILY 08/10/23 02/14/25 History multivitamin 1 tablet PO DAILY 08/10/23 02/14/25 History sertraline 50 mg tablet 50 mg PO DAILY #90 tabs 09/10/24 02/14/25 Rx rosuvastatin 20 mg tablet 20 mg PO DAILY #90 tabs 02/04/25 02/14/25 Rx omeprazole 40 mg capsule,delayed 40 mg PO DAILY #90 caps 02/12/25 02/14/25 Rx release estradiol 0.01% (0.1 mg/gram) 1 g vaginal 3XW #42.5 grams 02/14/25 02/14/25 Rx vaginal cream estradiol-norethindrone acet 1 1 tablet PO DAILY #28 tabs 03/17/25 Rx mg-0.5 mg tablet (Activella) hydroxyzine HCl 25 mg tablet 25 mg PO BID PRN anxiety #60 tabs 03/17/25 Rx lisinopril 10 mg tablet 10 mg PO DAILY #90 tabs 06/16/25 Rx tirzepatide (weight loss) 10 10 mg (0.5 mL) subcut WEEKLY #2 mL 06/20/25 Rx mg/0.5 mL subcutaneous pen injector (Zepbound) ondansetron 4 mg disintegrating 4 mg PO Q8H PRN nausea and 06/30/25 Rx tablet vomiting #10 tabs Allergies Allergy/AdvReac Type Severity Reaction Status Date / Time No Known Allergies Allergy Verified 07/02/25 11:14 Vital Signs Vital Signs - 24 hr 07/02/25 09:53 07/02/25 11:12 07/02/25 15:56 Temperature 98.6 F 98.6 F 98.6 F Pulse Rate 66 60 66 Respiratory Rate 20 14 14 Blood Pressure 151/84 H 163/82 H 171/95 H Pulse Oximetry 100 100 98 07/02/25 18:10 Temperature Pulse Rate 72 Respiratory Rate 14 Blood Pressure 141/91 H Pulse Oximetry 98 Exam Narrative: General - Awake and alert. No acute distress Eyes - PERRLA, EOM intact ENT - No thrush, No erythema Neck - No noticeable or palpable swelling Lymph Nodes - No lymphadenopathy Cardiovascular - RRR no m/r/g, no JVD Lungs: Clear to auscultation, No wheezing, no use of accessory muscles, no crackles or wheezes. Skin - Skin warm and dry, no wounds or rashes Abdomen - Normal bowel sounds, abdomen soft and mildly tender right upper abdomen Extremities - No edema, cyanosis or clubbing Musculoskeletal - 5/5 strength, normal range of motion, no swollen or erythematous joints. Neurological ? Alert and oriented x 3, CN 2-12 grossly intact. Psych: Normal mood and affect Results Labs Labs: Short CBC 07/02/25 Range/Units 12:48 WBC 12.5 H (4.5-10.0) K/mm3 Hgb 17.1 H D (12.0-15.0) g/dL Hct 49.1 H (37.0-47.0) % Plt Count 279 (150-375) k/mm3 BMP 07/02/25 12:48 Sodium 140 Potassium 3.4 Chloride 105 Carbon Dioxide 22 BUN 21 H Creatinine 1.06 H Glucose 120 H Calcium 10.0 Liver Function 07/02/25 Range/Units 12:48 Total Bilirubin 1.5 H (0.2-1.3) mg/dL AST 34 (14-36) U/L ALT 24 (6-35) U/L Alkaline Phosphatase 89 (38-126) U/L Albumin 5.1 (3.5-5.1) g/dL Urine 07/02/ Range/Units 12:37 Urine Color Yellow (Yellow) Urine Appearance Cloudy H (Clear) Urine pH 6.0 (5.0-9.0) Ur Specific [place] 1.032 (1.001-1.035) Urine Protein 1+ H (Negative) mg/dL Urine Glucose (UA) Negative (Negative) mg/dL Quality VTE Prophylaxis VTE prophylaxis: pharmacologic ordered Assessment and Plan Assessment and plan (1) Hydronephrosis of right kidney: Code(s): N13.30 - Unspecified hydronephrosis Status: Acute Assessment and Plan: CT showed right UPJ obstruction with severe right hydronephrosis as above --Urology consulted, planning renal lasix scan on Wednesday 07/04, possible nephrostomy tube with IR --Lovenox for DVT prophylaxis, hold monday --No evidence of UTI, asymptomatic and no WBC's on UA. Monitor off antibiotics. Perioperative antibiotics per urology --Ok for a diet 07/02 & 07/03, NPO AM 07/04 (2) Nausea and vomiting: Code(s): R11.2 - Nausea with vomiting, unspecified Status: Acute Assessment and Plan: Zofran/compazine prn --Holding tirzepatide for weight loss. Recently started --Monitor blood sugars for hypoglycemia. PRN dextrose for hypoglycemia. May be able to stop accuchecks if stable (3) Abdominal pain: Code(s): R10.9 - Unspecified abdominal pain Status: Acute Assessment and Plan: Tylenol, oxycodone, Dilaudid. Toradol if creatinine remains stable Primarily cramping pain to abdomen --miralax, senna for bowel regimen (4) Elevated bilirubin: Code(s): R17 - Unspecified jaundice Status: Acute Assessment and Plan: Bilrubin 1.5, check LFt's in AM Time Spent with Patient Time with patient: 45 - 74 minutes Hospitalist MIPS Advance Care Plan I have confirmed that the patient's Advanced Care Plan is present, code status is documented, or surrogate decision maker is listed in patient medical record.: Yes Medication Reconciliation I have utilized all available resources to obtain, update and review the patients current medications (includes all prescriptions, OTC, herbals, cannabis, and nutritional supplements).: Yes
[2025-07-02 20:30] VITALS: BP 153/90; PULSE 71; RESP 16; TEMP 36.6; O2SAT 99
--- NOTE | 2025-07-02 20:32 | WPCEDHO ---
ED Hand Off Checklist All vitals saved:y IV Site documented:y All med administrations documented:y Triage Note Triage Note Pt to ED via POV w/ reports of 07/02/25 11:06 RIGHT flank pain and N/V x 4 days . Pt denies urinary sx's. Pain is currently a 5/10. RN agrees with this assessment. Pt states the R flank pain started this morning and has quickly increased to a 10/10. Pt has had 2 episodes of emesis since arriving to the ED. Pt states her Zepbound dose increased from 7.5 to 10mg on Monday, 06/27. Allergies No Known Allergies Allergy (Verified 07/02/25 11:14) Family History (Last Reviewed 07/02/25 @ 14:56 by Darlene Trevino MD) Father Depression Hypertension Family history of emphysema Family history of bipolar disorder Mother Diabetes mellitus Hypertension Family history of arthritis Family history of bipolar disorder Family history of malignant neoplasm of uterus Administered/Completed Medications Discontinued Medications Hydromorphone HCl (Hydromorphone Hcl Inj (*Crx) 1 Mg/Ml Syr) 0.5 mg IV PUSH ONCE STA Stop: 07/02/25 12:22 Last Admin: 07/02/25 12:56 Dose: 0.5 mg Documented By: NATHANIELB Sodium Chloride (Normal Saline Iv) 1,000 mls @ 999 mls/hr IV CONT .Q1H1M STA Stop: 07/02/25 13:21 Last Infusion: 07/02/25 14:21 Dose: Infused Documented By: Admin: 07/02/25 12:54 Dose: 999 mls/hr Documented By: NATHANIELB Ceftriaxone Sodium 1 gm/ (Sodium Chloride) 50 mls @ 100 mls/hr IVPB ONCE STA Stop: 07/02/25 15:57 Last Infusion: 07/02/25 16:30 Dose: Infused Documented By: Admin: 07/02/25 15:47 Dose: 100 mls/hr Documented By: NATHANIELB Ketorolac Tromethamine (Ketorolac 30 Mg/Ml Vial (*Bkc)) 30 mg IV PUSH ONCE STA Stop: 07/02/25 15:51 Last Admin: 07/02/25 15:55 Dose: 30 mg Documented By: ANNABELLE Ondansetron HCl (Ondansetron Inj 4 Mg/2 Ml Vial) 4 mg IV PUSH ONCE STA Stop: 07/02/25 12:22 Last Admin: 07/02/25 12:55 Dose: 4 mg Documented By: WOLF Interventions/Assessments IV / Saline Lock, Insert Start: 07/02/25 12:22 Freq: STAT Status: Active Protocol: Document 07/02/25 12:47 TLB (Rec: 07/02/25 12:47 TLB [id number]) IV Assessment Peripheral Access Left Antecubital IV Catheter Access Initiated IV Insertion Date 07/02/25 IV Insertion Time 12:47 Catheter Gauge 20 IV Insertion 2 Attempts IV Site Assessment WNL IV Care and Access Locked Maintenance PA: Gastrointestinal Assessment Start: 07/02/25 09:07 Freq: Status: Active Protocol: Document 07/02/25 11:09 MCO (Rec: 07/02/25 11:10 MCO [id number]) GI Assessment Gastrointestinal Dry Heaves,Nausea,Pain,Vomiting Symptoms Description Flat,Soft,Tender Pattern Normal Flatus Present Date of Last Bowel 06/30/25 Movement Last Vital Signs Temperature 97.9 F 07/02/25 20:30 Pulse Rate 71 07/02/25 20:30 Respiratory Rate 16 07/02/25 20:30 Pulse Oximetry 99 07/02/25 20:30 Blood Pressure 153/90 H 07/02/25 20:30 Blood Pressure Mean 111 07/02/25 20:30 Blood Pressure Position Supine 07/02/25 18:10 Weight 87 kg 07/02/25 11:06 Last Result - Abnormals Only WBC 12.5 K/mm3 (4.5-10.0) H 07/02/25 12:48 RBC 5.65 M/mm3 (4.2-5.4) H 07/02/25 12:48 Hgb 17.1 g/dL (12.0-15.0) H D 07/02/25 12:48 Hct 49.1 % (37.0-47.0) H 07/02/25 12:48 Neut % (Auto) 75.4 % (45.5-73.1) H 07/02/25 12:48 Lymph % (Auto) 11.1 % (18.3-44.2) L 07/02/25 12:48 [place] % (Auto) 12.4 % (2.6-8.5) H 07/02/25 12:48 [place] # (Auto) 1.6 K/mm3 (0.1-0.6) H 07/02/25 12:48 Abs Immat Gran (auto) 0.06 K/mm3 (0.00-0.031) H 07/02/25 12:48 Absolute Neuts (auto) 9.4 K/mm3 (1.3-6.7) H 07/02/25 12:48 Anion Gap 13 mmol/L (4-12) H 07/02/25 12:48 BUN 21 mg/dL (7-17) H 07/02/25 12:48 Creatinine 1.06 mg/dL (0.7-1.0) H 07/02/25 12:48 Estimated GFR 55 (59-) L 07/02/25 12:48 Glucose 120 mg/dL (65-110) H 07/02/25 12:48 Total Bilirubin 1.5 mg/dL (0.2-1.3) H 07/02/25 12:48 Total Protein 8.9 g/dL (6.3-8.2) H 07/02/25 12:48 Urine Appearance Cloudy (Clear) H 07/02/25 12:37 Urine Protein 1+ mg/dL (Negative) H 07/02/25 12:37 Urine Ketones 3+ mg/dL (Negative) H 07/02/25 12:37 Ur Blood (Man) 3+ (Negative) H 07/02/25 12:37 Leukocyte Esterase Rfl Trace NAS/UL (Negative) H 07/02/25 12:37 Urine RBC >100 /hpf (0-2) H 07/02/25 12:37 Most Recent Suicide Severity Rating Suicide Severity Rating NO RISK INDICATED 07/02/25 11:06
--- NOTE | 2025-07-02 21:05 | ADMGEN ---
This patient, Twila Encarnacion, was admitted to Medical Room 340-01. Patient/family oriented to hospital policies and general routines including ID bracelet, bed and alarms, visiting hours, pain management, procedures, bathroom and other care routines, personal items, smoking policy, room service/diet, and visiting hours. Information on how to activate the Rapid Response Team has been discussed. Patient/Family are encouraged to report perceived risks to care and to ask questions if they do not understand what they are told or what they should do.
[2025-07-02 21:09] VITALS: BMI 33.3
[2025-07-02 21:46] VITALS: BP 164/84; PULSE 78; RESP 16; TEMP 36.3; O2SAT 100
[2025-07-02] MEDS: SODIUM CHLORIDE 0.9% IV 1,000 ML 100 ML IV CONT (22:46)
[2025-07-02] MEDS: oxyCODONE HCL (*CRX) 5 MG TAB IR PO (22:47)
[2025-07-03 04:19] VITALS: BP 126/84; PULSE 80; RESP 16; TEMP 36.7; O2SAT 100
[2025-07-03 05:58] LABS: Hematocrit 42.0 % (37.0-47.0); Hemoglobin 14.5 g/dL (12.0-15.0); Immature Granulocyte Percent A 0.4 % (0-0.5); Lymphocytes Absolute Auto 1.36 K/mm3 (0.9-3.2); Mean Corpuscular HGB Conc 34.5 g/dl (32-36); Mean Corpuscular Hemoglobin 30.4 pg (26-34); Mean Corpuscular Volume 88.1 fl (80-100); Nucleated Red Blood Cells Absolute Auto 0.000 K/mm3 (0.0-0.012); Nucleated Red Blood Cells Perc 0.0 % (0.0-0.2); Platelet Count Result 214 k/mm3 (150-375); Red Blood Count 4.77 M/mm3 (4.2-5.4); White Blood Count 11.6 K/mm3 (4.5-10.0)
[2025-07-03 06:23] LABS: Alanine Aminotransferase 16 U/L (6-35); Albumin Level 3.8 g/dL (3.5-5.1); Alkaline Phosphatase 63 U/L (38-126); Anion Gap 9 mmol/L (4-12); Aspartate Amino Transferase 23 U/L (14-36); Bilirubin,Total 1.2 mg/dL (0.2-1.3); Blood Urea Nitrogen 18 mg/dL (7-17); CRP 2.9 mg/dL (<1.0); Calcium 8.9 mg/dL (8.4-10.2); Carbon Dioxide 21 mmol/L (22-30); Chloride 108 mmol/L (98-107); Estimated CRCL calculation 70 ml/min; Estimated Glomerular Filt Rate > 60; Glucose 102 mg/dL (65-110); Magnesium 2.0 mg/dL (1.6-2.3); Potassium 3.4 mmol/L (3.4-5.0); Procalcitonin 0.1 ng/mL; Sodium 138 mmol/L (137-145); Total Protein 6.6 g/dL (6.3-8.2)
--- NOTE | 2025-07-03 07:55 | P.PNIM_ITS ---
Assessment and Plan Assessment and Plan (1) Hydronephrosis of right kidney: Code(s): N13.30 - Unspecified hydronephrosis Status: Acute Assessment and Plan: -CT showed right UPJ obstruction with severe right hydronephrosis without evidence of obstructing stone - UA without evidence of infection -Urology consulted, suspect chronic UPJ obstruction. Planning renal lasix scan on Wednesday 07/04, possible nephrostomy tube with IR -Lovenox for DVT prophylaxis, hold Monday -No evidence of UTI, asymptomatic and no WBC's on UA. Monitor off antibiotics. Perioperative antibiotics per urology -Ok for a diet 07/02 & 07/03, NPO AM 07/04 - continue pain control. Pain improved today. (2) Nausea and vomiting: Code(s): R11.2 - Nausea with vomiting, unspecified Status: Acute Assessment and Plan: -Zofran/compazine prn -Holding tirzepatide for weight loss. Recently increased dose -continue IV fluids - tolerating regular diet (3) Hypertension: Code(s): I10 - Essential (primary) hypertension Status: Acute Assessment and Plan: - continue home lisinopril (4) Hyperlipidemia: Qualifiers: Hyperlipidemia type: mixed hyperlipidemia Qualified Code(s): E78.2 - Mixed hyperlipidemia Code(s): E78.5 - Hyperlipidemia, unspecified Status: Acute Assessment and Plan: - continue home statin Plan Code status: full code DVT prophylaxis: Lovenox Dispo: home in 1-2 days Medical Record Review I have reviewed the following patient records and this information was taken into consideration when formulating the assessment and plan.: previous labs Consultations Consultations: I have discussed the care of this pt with the consulting providers. Subjective Date/time seen: 07/03/25 07:55 Interval history: Patient seen and examined at bedside. Minimal flank pain this morning. Denies dysuria, fever, chills, nausea, vomiting. Discussed plan of care patient is well as bedside, agreeable to remain admitted tonight for further evaluation by Urology tomorrow. Review of Systems Review of Systems: All systems reviewed & are unremarkable except as noted in HPI and below Exam Narrative: General: NAD Eyes: EOMI ENT: neck supple Cardiovascular: Regular rate and rhythm Respiratory: Clear to auscultation, respirations even and unlabored on RA Gastrointestinal: Soft, non tender Genitourinary: no suprapubic tenderness, mild right flank tenderness Musculoskeletal: No edema Skin: warm, dry Neuro: Alert. Psych: Mood appropriate Objective Data Vital Signs Vital Signs: Vital Signs - 24 hr 07/02/25 09:53 07/02/25 11:12 07/02/25 15:56 Temperature 98.6 F 98.6 F 98.6 F Pulse Rate 66 60 66 Respiratory Rate 20 14 14 Blood Pressure 151/84 H 163/82 H 171/95 H Pulse Oximetry 100 100 98 Oxygen Delivery 07/02/25 18:10 07/02/25 20:30 07/02/25 21:46 Temperature 97.9 F 97.3 F L Pulse Rate 72 71 78 Respiratory Rate 14 16 16 Blood Pressure 141/91 H 153/90 H 164/84 H Pulse Oximetry 98 99 100 Oxygen Delivery 07/02/25 23:54 07/03/25 04:19 Temperature 98.1 F Pulse Rate 80 Respiratory Rate 16 Blood Pressure 126/84 Pulse Oximetry 100 Oxygen Delivery Room Air Intake/Output Intake/Output: Intake & Output 06/30/25 07/01/25 07/02/25 07/03/25 23:59 23:59 23:59 23:59 Intake Total 1050 150 Balance 1050 150 Meds/Results Medications: Active Medications Generic Name Dose Route Start Last Admin Trade Name Freq PRN Reason Stop Dose Admin Acetaminophen 650 mg 07/02/25 15:50 Acetaminophen 325 Mg Tablet PO Q4H PRN Mild Pain (1-3) or Fever Dextrose 12.5 gm 07/02/25 21:16 Dextrose 50% 25 Gm/50 Ml Syringe IV PUSH PRN PRN Hypoglycemia Protocol Enoxaparin Sodium 40 mg 07/03/25 09:00 Enoxaparin 40 Mg/0.4 Ml Syringe SUB-Q 07/04/25 00:01 DAILY OMKAR Glucagon 1 mg 07/02/25 21:16 Glucagon For Inj 1 Mg Vial IM PRN PRN Hypoglycemia Protocol Glucose 15 gm 07/02/25 21:16 Glucose Oral Gel 15 Gm Of Glucse In 37.5 Gm Tube PO PRN PRN Hypoglycemia Protocol Hydromorphone HCl 0.5 mg 07/02/25 15:50 07/02/25 20:42 Hydromorphone Hcl Inj (*Crx) 1 Mg/Ml Syr IV PUSH 0.5 mg Q4H PRN Administration Pain Rated 7-10 Dextrose 1,000 mls @ 100 mls/hr 07/02/25 21:16 Dextrose 5% 1,000 Ml IVPB PRN PRN Hypoglycemia Protocol Sodium Chloride 1,000 mls @ 100 mls/hr 07/02/25 21:25 07/02/25 22:46 Normal Saline Iv IV CONT 100 mls/hr .Q10H OMKAR Administration Lisinopril 10 mg 07/03/25 09:00 Lisinopril 10 Mg Tablet PO DAILY OMKAR Ondansetron HCl 4 mg 07/02/25 15:50 07/02/25 22:16 Ondansetron Inj 4 Mg/2 Ml Vial IV PUSH 4 mg Q4H PRN Administration Nausea Ondansetron HCl 4 mg 07/02/25 21:07 Ondansetron Inj 4 Mg/2 Ml Vial IV PUSH Q6H PRN Nausea And Vomiting Oxycodone HCl 5 mg 07/02/25 21:07 07/02/25 22:47 Oxycodone Hcl (*Crx) 5 Mg Tab Ir PO 5 mg Q4H PRN Administration Moderate Pain (4-6) Pantoprazole Sodium 40 mg 07/03/25 09:00 Pantoprazole 40 Mg Tablet PO [facility] Polyethylene Glycol 17 gm 07/03/25 09:00 Polyethylene Glycol 3350 17 Gm Powd.Pack PO [facility] Prochlorperazine Edisylate 10 mg 07/02/25 21:07 Prochlorperazine Edisylate 10 Mg/2 Ml Vial IV PUSH Q6H PRN Nausea And Vomiting Senna 8.6 mg 07/03/25 21:00 Sennosides 8.6 Mg Tablet PO [facility] Sertraline HCl 50 mg 07/03/25 09:00 Sertraline Hcl 50 Mg Tablet PO [facility] Radiology Results: ITS Impressions Abdomen/Pelvis CT 07/02/25 13:39 IMPRESSION: 1. Right UPJ obstruction with severe right hydronephrosis, delayed right nephrogram and mild right perinephric stranding but without evident obstructing stone or mass at the ureteropelvic junction. Correlate with urinalysis. Labs Labs: Laboratory Results - last 24 hr 07/02/25 07/02/25 07/02/25 12:37 12:48 22:06 WBC 12.5 H RBC 5.65 H Hgb 17.1 H D Hct 49.1 H MCV 86.9 MCH 30.3 MCHC 34.8 RDW 12.7 Plt Count 279 MPV 10.3 Immature Gran % (Auto) 0.5 Neut % (Auto) 75.4 H Lymph % (Auto) 11.1 L [place] % (Auto) 12.4 H Eos % (Auto) 0.2 Baso % (Auto) 0.4 Lymph # (Auto) 1.38 [place] # (Auto) 1.6 H Eos # (Auto) 0.0 Baso # (Auto) 0.1 Abs Immat Gran (auto) 0.06 H Absolute Neuts (auto) 9.4 H Absolute Nucleated RBC 0.000 Nucleated RBC % 0.0 ESR Sodium 140 Potassium 3.4 Chloride 105 Carbon Dioxide 22 Anion Gap 13 H BUN 21 H Creatinine 1.06 H Estim Creat Clear Calc 60 Estimated GFR 55 L Glucose 120 H POC Capillary Glucose 140 H Calcium 10.0 Magnesium Total Bilirubin 1.5 H AST 34 ALT 24 Alkaline Phosphatase 89 C-Reactive Protein Total Protein 8.9 H Albumin 5.1 Lipase 81 Procalcitonin Urine Color Yellow Urine Appearance Cloudy H Urine pH 6.0 Ur Specific [place] 1.032 Urine Protein 1+ H Urine Glucose (UA) Negative Urine Ketones 3+ H Ur Blood (Man) 3+ H Urine Nitrate Negative Urine Bilirubin Negative Urine Urobilinogen 1.0 Leukocyte Esterase Rfl Trace H Urine RBC >100 H Urine WBC 0-5 Ur Squamous Epith Cells None seen Urine Bacteria None seen Urine Casts 0-2 07/03/25 07/03/25 05:23 07:28 WBC 11.6 H RBC 4.77 Hgb 14.5 Hct 42.0 MCV 88.1 MCH 30.4 MCHC 34.5 RDW 12.8 Plt Count 214 MPV 10.5 H Immature Gran % (Auto) 0.4 Neut % (Auto) 70.6 Lymph % (Auto) 11.8 L [place] % (Auto) 16.3 H Eos % (Auto) 0.6 Baso % (Auto) 0.3 Lymph # (Auto) 1.36 [place] # (Auto) 1.9 H Eos # (Auto) 0.1 Baso # (Auto) 0.0 Abs Immat Gran (auto) 0.05 H Absolute Neuts (auto) 8.2 H Absolute Nucleated RBC 0.000 Nucleated RBC % 0.0 ESR 16 Sodium 138 Potassium 3.4 Chloride 108 H Carbon Dioxide 21 L Anion Gap 9 BUN 18 H Creatinine 0.91 Estim Creat Clear Calc 70 Estimated GFR > 60 Glucose 102 POC Capillary Glucose 118 H Calcium 8.9 Magnesium 2.0 Total Bilirubin 1.2 AST 23 ALT 16 Alkaline Phosphatase 63 C-Reactive Protein 2.9 H Total Protein 6.6 Albumin 3.8 Lipase Procalcitonin 0.1 Urine Color Urine Appearance Urine pH Ur Specific [place] Urine Protein Urine Glucose (UA) Urine Ketones Ur Blood (Man) Urine Nitrate Urine Bilirubin Urine Urobilinogen Leukocyte Esterase Rfl Urine RBC Urine WBC Ur Squamous Epith Cells Urine Bacteria Urine Casts Quality VTE Prophylaxis VTE prophylaxis: pharmacologic ordered
[2025-07-03] MEDS: SERTRALINE HCL 50 MG TABLET PO (08:15)
[2025-07-03] MEDS: PANTOPRAZOLE 40 MG TABLET PO (08:15)
[2025-07-03] MEDS: ENOXAPARIN 40 MG/0.4 ML SYRINGE SUB-Q (08:16)
[2025-07-03] MEDS: oxyCODONE HCL (*CRX) 5 MG TAB IR PO (08:18)
[2025-07-03] MEDS: SODIUM CHLORIDE 0.9% IV 1,000 ML 100 ML IV CONT ×2 (08:18→18:33)
[2025-07-03] MEDS: ONDANSETRON INJ 4 MG/2 ML VIAL IV PUSH (13:44)
[2025-07-03 14:00] VITALS: BP 123/83; PULSE 69; RESP 18; TEMP 36.2; O2SAT 98
--- NOTE | 2025-07-03 14:14 | WPDURCON ---
Assessment and Plan Assessment and plan (1) Hydronephrosis of right kidney: Code(s): N13.30 - Unspecified hydronephrosis Status: Acute Plan 50-year-old female with right hydronephrosis suspicious for right UPJ obstruction - I discussed with the Radiology Department. There are unavailable today to perform Lasix renal scan. They will be able to perform this tomorrow on 07/04/2025. - Pending the results of her Lasix renal scan, we will plan to either place a ureteral stent. I reviewed the modus operandi of cystoscopy, right retrograde pyelogram, right ureteral stent placement with the patient. The patient expressed understanding and agreement with the plan. I reviewed with the patient that the ureteral stent is not a permanent implant and needs to be removed and/or exchanged in a timely fashion, otherwise acting get encrusted, cause obstruction, permanent kidney damage, UTI/sepsis, and even - Pending the results of her workup, patient may benefit in the future from right sided pyeloplasty versus nephrectomy depending on her split kidney function and remaining results of her Lasix scan - We will make patient NPO at midnight in anticipation of anticipated surgery tomorrow. - Remainder of management per primary - Urology will follow Urology Consult Note HPI Date Seen: 07/03/25 Requesting Physician: Wellington Lynn MD Primary Care Provider: Dyllan Gaitan DO Consult Narrative Narrative: Twila Encarnacion is a 50 year old female with PMHx of HLD, GERD who presented to the hospital yesterday for right abdominal/flank pain. Workup including CT scan showed significant right hydronephrosis with a transition point at the right UPJ without an obstructing stone. Patient has no prior abdominal imaging involving her kidneys. She reports that her pain was initially not well controlled to the point where she felt like she needed to be hospitalized, but is currently feeling better today. Her surgical history is notable for placement of mid urethral sling for stress urinary incontinence with Dr. Joe in July 2021. Otherwise she denies history of kidney stones or other urologic issues. Review of Systems Review of Systems: Negative except as noted in HPI PMFSH Past Medical History Medical History Screening mammogram, encounter for Cataract Chronic GERD Anxiety High cholesterol Surgical History Surgical History History of orthopedic surgery left leg hardware H/O midurethral sling procedure History of carpal tunnel surgery Lower extremity surgery planned Family History Family History Father Depression Hypertension Family history of emphysema Family history of bipolar disorder Mother Diabetes mellitus Hypertension Family history of arthritis Family history of bipolar disorder Family history of malignant neoplasm of uterus Social History Social History Smoking packs per day: 1 Smoking cigarettes per day: 20.0 Years smoked: 3 Smoking pack-years: 3.00 Smoking status: Former smoker Tobacco type: cigarettes Second hand tobacco smoke exposure: No Alcohol intake: current Drinks per week: 1 Alcohol use details: social 3 a month Substance use: current Substance use type: marijuana Lack of Transportation: No Lack of Food: Never True Current Housing: I Have Housing Concerned About Future Housing: No Difficulty Paying Gas/Electric Bills: No Difficulty Paying for Meds: No Currently Unemployed: No Education: Associate Degree Difficulty w/ Childcare or Family Care: No Living arrangements: with family Additional living arrangements comments: 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 Gender identity (if verbalized by the patient): Female Sexual Orientation (if Verbalized by the Patient): Straight or Heterosexual Spiritual care concerns: No Meds Home Medications and Allergies Home Medications ?Medication ?Instructions ?Recorded ?Confirmed ?Type cholecalciferol (vitamin D3) 25 25 mcg PO DAILY 08/10/23 07/02/25 History mcg (1,000 unit) capsule ginkgo biloba 40 mg tablet 40 mg PO DAILY 08/10/23 07/02/25 History magnesium 200 mg tablet 200 mg PO DAILY 08/10/23 07/02/25 History multivitamin 1 tablet PO DAILY 08/10/23 07/02/25 History sertraline 50 mg tablet 50 mg PO DAILY #90 tabs 09/10/24 07/02/25 Rx rosuvastatin 20 mg tablet 20 mg PO DAILY #90 tabs 02/04/25 07/02/25 Rx omeprazole 40 mg capsule,delayed 40 mg PO DAILY #90 caps 02/12/25 07/02/25 Rx release estradiol 0.01% (0.1 mg/gram) 1 g vaginal 3XW #42.5 grams 02/14/25 07/02/25 Rx vaginal cream estradiol-norethindrone acet 1 1 tablet PO DAILY #28 tabs 03/17/25 07/02/25 Rx mg-0.5 mg tablet (Activella) hydroxyzine HCl 25 mg tablet 25 mg PO BID PRN anxiety #60 tabs 03/17/25 07/02/25 Rx lisinopril 10 mg tablet 10 mg PO DAILY #90 tabs 06/16/25 07/02/25 Rx tirzepatide (weight loss) 10 10 mg (0.5 mL) subcut WEEKLY #2 mL 06/20/25 07/02/25 Rx mg/0.5 mL subcutaneous pen injector (Zepbound) ondansetron 4 mg disintegrating 4 mg PO Q8H PRN nausea and 06/30/25 07/02/25 Rx tablet vomiting #10 tabs Allergies Allergy/AdvReac Type Severity Reaction Status Date / Time No Known Allergies Allergy Verified 07/02/25 22:25 Vital Signs Vital Signs - 24 hr 07/02/25 15:56 07/02/25 18:10 07/02/25 20:30 Temperature 37.0 C 36.6 C Pulse Rate 66 72 71 Respiratory Rate 14 14 16 Blood Pressure 171/95 H 141/91 H 153/90 H Pulse Oximetry 98 98 99 Oxygen Delivery 07/02/25 21:46 07/02/25 23:54 07/03/25 04:19 Temperature 36.3 C L 36.7 C Pulse Rate 78 80 Respiratory Rate 16 16 Blood Pressure 164/84 H 126/84 Pulse Oximetry 100 100 Oxygen Delivery Room Air 07/03/25 08:00 Temperature Pulse Rate Respiratory Rate Blood Pressure Pulse Oximetry Oxygen Delivery Room Air Results Labs 07/03/25 05:23 07/03/25 05:23 Labs: Short CBC 07/03/25 Range/Units 05:23 WBC 11.6 H (4.5-10.0) K/mm3 Hgb 14.5 (12.0-15.0) g/dL Hct 42.0 (37.0-47.0) % Plt Count 214 (150-375) k/mm3 BMP 07/03/25 05:23 Sodium 138 Potassium 3.4 Chloride 108 H Carbon Dioxide 21 L BUN 18 H Creatinine 0.91 Glucose 102 Calcium 8.9 Liver Function 07/03/25 Range/Units 05:23 Total Bilirubin 1.2 (0.2-1.3) mg/dL AST 23 (14-36) U/L ALT 16 (6-35) U/L Alkaline Phosphatase 63 (38-126) U/L Albumin 3.8 (3.5-5.1) g/dL
[2025-07-03] MEDS: SENNOSIDES 8.6 MG TABLET PO (20:48)
[2025-07-03 21:39] VITALS: BP 91/60; PULSE 76; RESP 18; TEMP 36.7; O2SAT 97
[2025-07-04] VITALS (7 sets, daily range): BP systolic 110–124; BP diastolic 60–73; PULSE 70–91; RESP 12–18; TEMP 36.1–36.8; O2SAT 98–100
[2025-07-04] MEDS: SODIUM CHLORIDE 0.9% IV 1,000 ML 100 ML IV CONT (04:33)
[2025-07-04 05:40] LABS: Hematocrit 42.7 % (37.0-47.0); Hemoglobin 14.1 g/dL (12.0-15.0); Immature Granulocyte Percent A 0.3 % (0-0.5); Lymphocytes Absolute Auto 1.28 K/mm3 (0.9-3.2); Mean Corpuscular HGB Conc 33.0 g/dl (32-36); Mean Corpuscular Hemoglobin 29.6 pg (26-34); Mean Corpuscular Volume 89.5 fl (80-100); Nucleated Red Blood Cells Absolute Auto 0.000 K/mm3 (0.0-0.012); Nucleated Red Blood Cells Perc 0.0 % (0.0-0.2); Platelet Count Result 212 k/mm3 (150-375); Red Blood Count 4.77 M/mm3 (4.2-5.4); White Blood Count 6.7 K/mm3 (4.5-10.0)
[2025-07-04 06:05] LABS: Anion Gap 10 mmol/L (4-12); Blood Urea Nitrogen 13 mg/dL (7-17); Calcium 8.8 mg/dL (8.4-10.2); Carbon Dioxide 21 mmol/L (22-30); Chloride 109 mmol/L (98-107); Estimated CRCL calculation 74 ml/min; Estimated Glomerular Filt Rate > 60; Glucose 103 mg/dL (65-110); Potassium 3.6 mmol/L (3.4-5.0); Sodium 140 mmol/L (137-145)
[2025-07-04] MEDS: FUROSEMIDE INJ 40 MG/4 ML VIAL IV PUSH (06:07)
--- NOTE | 2025-07-04 07:37 | P.PNIM_ITS ---
Assessment and Plan Assessment and Plan (1) Hydronephrosis of right kidney: Code(s): N13.30 - Unspecified hydronephrosis Status: Acute Assessment and Plan: -CT showed right UPJ obstruction with severe right hydronephrosis without evidence of obstructing stone -No evidence of UTI, asymptomatic and no WBC's on UA. Monitor off antibiotics. Perioperative antibiotics per urology -Urology consulted, suspect chronic UPJ obstruction. Planning renal lasix scan and likely cystoscopy with stent placement today - continue pain control. Pain improved today. - NPO (2) Nausea and vomiting: Code(s): R11.2 - Nausea with vomiting, unspecified Status: Acute Assessment and Plan: -Zofran/compazine prn -Holding tirzepatide for weight loss. Recently increased dose -continue IV fluids - tolerating regular diet (3) Hypertension: Code(s): I10 - Essential (primary) hypertension Status: Acute Assessment and Plan: - continue home lisinopril (4) Hyperlipidemia: Qualifiers: Hyperlipidemia type: mixed hyperlipidemia Qualified Code(s): E78.2 - Mixed hyperlipidemia Code(s): E78.5 - Hyperlipidemia, unspecified Status: Acute Assessment and Plan: - continue home statin Plan Code status: full code DVT prophylaxis: Lovenox Dispo: home in 1-2 days Medical Record Review I have reviewed the following patient records and this information was taken into consideration when formulating the assessment and plan.: previous labs Consultations Consultations: I have discussed the care of this pt with the consulting providers. Subjective Date/time seen: 07/04/25 07:37 Interval history: Patient seen and examined at bedside. Denied pain or nausea this AM. Urinating without difficulty. Awaiting Lasix renal scan. Review of Systems Review of Systems: All systems reviewed & are unremarkable except as noted in HPI and below Exam Narrative: General: NAD Eyes: EOMI ENT: neck supple Cardiovascular: Regular rate and rhythm Respiratory: Clear to auscultation, respirations even and unlabored on RA Gastrointestinal: Soft, non tender Genitourinary: no suprapubic tenderness, no flank tenderness Musculoskeletal: No edema Skin: warm, dry Neuro: Alert. Psych: Mood appropriate Objective Data Vital Signs Vital Signs: Vital Signs - 24 hr 07/03/25 08:00 07/03/25 14:00 07/03/25 20:00 Temperature 97.2 F L Pulse Rate 69 Respiratory Rate 18 Blood Pressure 123/83 Pulse Oximetry 98 Oxygen Delivery Room Air Room Air 07/03/25 21:39 07/04/25 06:00 Temperature 98.0 F 98.3 F Pulse Rate 76 70 Respiratory Rate 18 18 Blood Pressure 91/60 L 114/73 Pulse Oximetry 97 99 Oxygen Delivery Intake/Output Intake/Output: Intake & Output 07/01/25 07/02/25 07/03/25 07/04/25 23:59 23:59 23:59 23:59 Intake Total 1050 2943.3 1350 Balance 1050 2943.3 1350 Meds/Results Medications: Active Medications Generic Name Dose Route Start Last Admin Trade Name Freq PRN Reason Stop Dose Admin Acetaminophen 650 mg 07/02/25 15:50 Acetaminophen 325 Mg Tablet PO Q4H PRN Mild Pain (1-3) or Fever Dextrose 12.5 gm 07/02/25 21:16 Dextrose 50% 25 Gm/50 Ml Syringe IV PUSH PRN PRN Hypoglycemia Protocol Glucagon 1 mg 07/02/25 21:16 Glucagon For Inj 1 Mg Vial IM PRN PRN Hypoglycemia Protocol Glucose 15 gm 07/02/25 21:16 Glucose Oral Gel 15 Gm Of Glucse In 37.5 Gm Tube PO PRN PRN Hypoglycemia Protocol Hydromorphone HCl 0.5 mg 07/02/25 15:50 07/02/25 20:42 Hydromorphone Hcl Inj (*Crx) 1 Mg/Ml Syr IV PUSH 0.5 mg Q4H PRN Administration Pain Rated 7-10 Dextrose 1,000 mls @ 100 mls/hr 07/02/25 21:16 Dextrose 5% 1,000 Ml IVPB PRN PRN Hypoglycemia Protocol Sodium Chloride 1,000 mls @ 100 mls/hr 07/02/25 21:25 07/04/25 04:33 Normal Saline Iv IV CONT 100 mls/hr .Q10H OMKAR Administration Cefazolin Sodium 2 gm/ Sodium 50 mls @ 100 mls/hr 07/04/25 09:00 Chloride IVPB 07/04/25 09:29 ONCE ONE Ketorolac Tromethamine 15 mg 07/03/25 12:42 Ketorolac 15 Mg/Ml Vial (*Bkc) IV PUSH 07/05/25 12:00 Q6H PRN Pain Rated 4-6 if NPO Lisinopril 10 mg 07/04/25 09:00 Lisinopril 10 Mg Tablet PO DAILY OMKAR Ondansetron HCl 4 mg 07/02/25 21:07 07/03/25 13:44 Ondansetron Inj 4 Mg/2 Ml Vial IV PUSH 4 mg Q6H PRN Administration Nausea And Vomiting Oxycodone HCl 5 mg 07/02/25 21:07 07/03/25 08:18 Oxycodone Hcl (*Crx) 5 Mg Tab Ir PO 5 mg Q4H PRN Administration Moderate Pain (4-6) Pantoprazole Sodium 40 mg 07/03/25 09:00 07/03/25 08:15 Pantoprazole 40 Mg Tablet PO 40 mg QAM OMKAR Administration Polyethylene Glycol 17 gm 07/03/25 09:00 07/03/25 08:16 Polyethylene Glycol 3350 17 Gm Powd.Pack PO 17 gm QAM OMKAR Administration Prochlorperazine Edisylate 10 mg 07/02/25 21:07 Prochlorperazine Edisylate 10 Mg/2 Ml Vial IV PUSH Q6H PRN Nausea And Vomiting Rosuvastatin Calcium 20 mg 07/04/25 09:00 Rosuvastatin 20 Mg Tablet PO DAILY OMKAR Senna 8.6 mg 07/03/25 21:00 07/03/25 20:48 Sennosides 8.6 Mg Tablet PO 8.6 mg HS OMKAR Administration Sertraline HCl 50 mg 07/03/25 09:00 07/03/25 08:15 Sertraline Hcl 50 Mg Tablet PO 50 mg QAM OMKAR Administration Radiology Results: ITS Impressions Abdomen/Pelvis CT 07/02/25 13:39 IMPRESSION: 1. Right UPJ obstruction with severe right hydronephrosis, delayed right nephrogram and mild right perinephric stranding but without evident obstructing stone or mass at the ureteropelvic junction. Correlate with urinalysis. Labs Labs: Laboratory Results - last 24 hr 07/03/25 07/03/25 07/03/25 05:23 07:28 11:31 WBC RBC Hgb Hct MCV MCH MCHC RDW Plt Count MPV Immature Gran % (Auto) Neut % (Auto) Lymph % (Auto) [place] % (Auto) Eos % (Auto) Baso % (Auto) Lymph # (Auto) [place] # (Auto) Eos # (Auto) Baso # (Auto) Abs Immat Gran (auto) Absolute Neuts (auto) Absolute Nucleated RBC Nucleated RBC % ESR 16 Sodium Potassium Chloride Carbon Dioxide Anion Gap BUN Creatinine Estim Creat Clear Calc Estimated GFR Glucose POC Capillary Glucose 118 H 112 H Calcium 07/03/25 07/03/25 07/04/25 17:02 20:01 05:09 WBC 6.7 RBC 4.77 Hgb 14.1 Hct 42.7 MCV 89.5 MCH 29.6 MCHC 33.0 RDW 12.8 Plt Count 212 MPV 11.2 H Immature Gran % (Auto) 0.3 Neut % (Auto) 61.5 Lymph % (Auto) 19.2 [place] % (Auto) 15.8 H Eos % (Auto) 2.7 Baso % (Auto) 0.5 Lymph # (Auto) 1.28 [place] # (Auto) 1.1 H Eos # (Auto) 0.2 Baso # (Auto) 0.0 Abs Immat Gran (auto) 0.02 Absolute Neuts (auto) 4.1 Absolute Nucleated RBC 0.000 Nucleated RBC % 0.0 ESR Sodium 140 Potassium 3.6 Chloride 109 H Carbon Dioxide 21 L Anion Gap 10 BUN 13 D Creatinine 0.85 Estim Creat Clear Calc 74 Estimated GFR > 60 Glucose 103 POC Capillary Glucose 104 128 H Calcium 8.8 Quality VTE Prophylaxis VTE prophylaxis: pharmacologic ordered
--- NOTE | 2025-07-04 09:01 | P.PNUR_ITS ---
Progress Note: A&P Assessment and Plan (1) Hydronephrosis of right kidney: Code(s): N13.30 - Unspecified hydronephrosis Status: Acute Plan 50-year-old female with right hydronephrosis suspicious for right UPJ obstruction - Awaiting Lasix renal scan today - Pending the results of her Lasix renal scan, planning for cystoscopy, right retrograde pyelogram, right ureteral stent placement this afternoon. Dr. Tate reviewed details of procedure, risks, benefits and she wishes to proceed. - Pending the results of her workup, patient may benefit in the future from right sided pyeloplasty versus nephrectomy depending on her split kidney function and remaining results of her Lasix scan - Continue NPO diet - Remainder of management per primary - Urology will follow Subjective Subjective Date/Time Seen: 07/04/25 09:01 Interval history: October is feeling better today. Her right flank pain has significantly improved, though reports is still noticeable. Reports occasional spasm like discomfort. Received lasix this morning pending lasix renal scan, reports urinary frequency associated with this. Denies N/V/F/C. No additional concerns. Review of Systems Review of Systems: All systems reviewed & are unremarkable except as noted in HPI and below Exam Narrative: General: Awake, alert, comfortable, no acute distress HEENT: Normocephalic, atraumatic, sclerae anicteric Respiratory: Normal respiratory effort, no accessory muscle use Abdomen: Nondistended, soft, nontender Skin: Normal coloration, warm and dry Neurologic: No focal neuro deficits noted Psychiatric: Appropriate mood and affect, judgment and insight intact Objective Data Vital Signs Vital Signs: Vital Signs - 24 hr 07/03/25 14:00 07/03/25 20:00 07/03/25 21:39 Temperature 97.2 F L 98.0 F Pulse Rate 69 76 Respiratory Rate 18 18 Blood Pressure 123/83 91/60 L Pulse Oximetry 98 97 Oxygen Delivery Room Air 07/04/25 06:00 Temperature 98.3 F Pulse Rate 70 Respiratory Rate 18 Blood Pressure 114/73 Pulse Oximetry 99 Oxygen Delivery Intake/Output Intake/Output: Intake & Output 07/01/25 07/02/25 07/03/25 07/04/25 23:59 23:59 23:59 23:59 Intake Total 1050 2943.3 1350 Balance 1050 2943.3 1350 Meds/Results Medications: Active Medications Generic Name Dose Route Start Last Admin Trade Name Freq PRN Reason Stop Dose Admin Acetaminophen 650 mg 07/02/25 15:50 Acetaminophen 325 Mg Tablet PO Q4H PRN Mild Pain (1-3) or Fever Dextrose 12.5 gm 07/02/25 21:16 Dextrose 50% 25 Gm/50 Ml Syringe IV PUSH PRN PRN Hypoglycemia Protocol Glucagon 1 mg 07/02/25 21:16 Glucagon For Inj 1 Mg Vial IM PRN PRN Hypoglycemia Protocol Glucose 15 gm 07/02/25 21:16 Glucose Oral Gel 15 Gm Of Glucse In 37.5 Gm Tube PO PRN PRN Hypoglycemia Protocol Hydromorphone HCl 0.5 mg 07/02/25 15:50 07/02/25 20:42 Hydromorphone Hcl Inj (*Crx) 1 Mg/Ml Syr IV PUSH 0.5 mg Q4H PRN Administration Pain Rated 7-10 Dextrose 1,000 mls @ 100 mls/hr 07/02/25 21:16 Dextrose 5% 1,000 Ml IVPB PRN PRN Hypoglycemia Protocol Sodium Chloride 1,000 mls @ 100 mls/hr 07/02/25 21:25 07/04/25 04:33 Normal Saline Iv IV CONT 100 mls/hr .Q10H OMKAR Administration Cefazolin Sodium 2 gm/ Sodium 50 mls @ 100 mls/hr 07/04/25 09:00 Chloride IVPB 07/04/25 09:29 ONCE ONE Ketorolac Tromethamine 15 mg 07/03/25 12:42 Ketorolac 15 Mg/Ml Vial (*Bkc) IV PUSH 07/05/25 12:00 Q6H PRN Pain Rated 4-6 if NPO Lisinopril 10 mg 07/04/25 09:00 Lisinopril 10 Mg Tablet PO DAILY OMKAR Ondansetron HCl 4 mg 07/02/25 21:07 07/03/25 13:44 Ondansetron Inj 4 Mg/2 Ml Vial IV PUSH 4 mg Q6H PRN Administration Nausea And Vomiting Oxycodone HCl 5 mg 07/02/25 21:07 07/03/25 08:18 Oxycodone Hcl (*Crx) 5 Mg Tab Ir PO 5 mg Q4H PRN Administration Moderate Pain (4-6) Pantoprazole Sodium 40 mg 12/25/25 09:00 07/03/25 08:15 Pantoprazole 40 Mg Tablet PO 40 mg QAM OMKAR Administration Polyethylene Glycol 17 gm 07/03/25 09:00 07/03/25 08:16 Polyethylene Glycol 3350 17 Gm Powd.Pack PO 17 gm QAM OMKAR Administration Prochlorperazine Edisylate 10 mg 07/02/25 21:07 Prochlorperazine Edisylate 10 Mg/2 Ml Vial IV PUSH Q6H PRN Nausea And Vomiting Rosuvastatin Calcium 20 mg 07/04/25 09:00 Rosuvastatin 20 Mg Tablet PO DAILY OMKAR Senna 8.6 mg 07/03/25 21:00 07/03/25 20:48 Sennosides 8.6 Mg Tablet PO 8.6 mg HS OMKAR Administration Sertraline HCl 50 mg 07/03/25 09:00 07/03/25 08:15 Sertraline Hcl 50 Mg Tablet PO 50 mg QAM OMKAR Administration Radiology Results: ITS Impressions Abdomen/Pelvis CT 07/02/25 13:39 IMPRESSION: 1. Right UPJ obstruction with severe right hydronephrosis, delayed right nephrogram and mild right perinephric stranding but without evident obstructing stone or mass at the ureteropelvic junction. Correlate with urinalysis. Labs Labs: Laboratory Results - last 24 hr 07/03/25 07/03/25 07/03/25 11:31 17:02 20:01 WBC RBC Hgb Hct MCV MCH MCHC RDW Plt Count MPV Immature Gran % (Auto) Neut % (Auto) Lymph % (Auto) [place] % (Auto) Eos % (Auto) Baso % (Auto) Lymph # (Auto) [place] # (Auto) Eos # (Auto) Baso # (Auto) Abs Immat Gran (auto) Absolute Neuts (auto) Absolute Nucleated RBC Nucleated RBC % Sodium Potassium Chloride Carbon Dioxide Anion Gap BUN Creatinine Estim Creat Clear Calc Estimated GFR Glucose POC Capillary Glucose 112 H 104 128 H Calcium 07/04/25 07/04/25 05:09 08:01 WBC 6.7 RBC 4.77 Hgb 14.1 Hct 42.7 MCV 89.5 MCH 29.6 MCHC 33.0 RDW 12.8 Plt Count 212 MPV 11.2 H Immature Gran % (Auto) 0.3 Neut % (Auto) 61.5 Lymph % (Auto) 19.2 [place] % (Auto) 15.8 H Eos % (Auto) 2.7 Baso % (Auto) 0.5 Lymph # (Auto) 1.28 [place] # (Auto) 1.1 H Eos # (Auto) 0.2 Baso # (Auto) 0.0 Abs Immat Gran (auto) 0.02 Absolute Neuts (auto) 4.1 Absolute Nucleated RBC 0.000 Nucleated RBC % 0.0 Sodium 140 Potassium 3.6 Chloride 109 H Carbon Dioxide 21 L Anion Gap 10 BUN 13 D Creatinine 0.85 Estim Creat Clear Calc 74 Estimated GFR > 60 Glucose 103 POC Capillary Glucose 97 Calcium 8.8
--- NOTE | 2025-07-04 09:16 | WPDUROPN2 ---
Progress Note: A&P Assessment and Plan (1) Hydronephrosis of right kidney: Code(s): N13.30 - Unspecified hydronephrosis Status: Acute Plan 50-year-old female with right hydronephrosis suspicious for right UPJ obstruction - Awaiting Lasix renal scan today - Pending the results of her Lasix renal scan, planning for cystoscopy, right retrograde pyelogram, right ureteral stent placement this afternoon. Dr. Tate reviewed details of procedure, risks, benefits and she wishes to proceed. - Pending the results of her workup, patient may benefit in the future from right sided pyeloplasty versus nephrectomy depending on her split kidney function and remaining results of her Lasix scan - Continue NPO diet - Remainder of management per primary - Urology will follow Subjective Subjective Date/Time Seen: 07/04/25 09:16 Objective Data Vital Signs Vital Signs: Vital Signs - 24 hr 07/03/25 14:00 07/03/25 20:00 07/03/25 21:39 Temperature 36.2 C L 36.7 C Pulse Rate 69 76 Respiratory Rate 18 18 Blood Pressure 123/83 91/60 L Pulse Oximetry 98 97 Oxygen Delivery Room Air 07/04/25 06:00 Temperature 36.8 C Pulse Rate 70 Respiratory Rate 18 Blood Pressure 114/73 Pulse Oximetry 99 Oxygen Delivery Intake/Output Intake/Output: Intake & Output 07/01/25 07/02/25 07/03/25 07/04/25 23:59 23:59 23:59 23:59 Intake Total 1050 2943.3 1350 Balance 1050 2943.3 1350 Meds/Results Medications: Active Medications Generic Name Dose Route Start Last Admin Trade Name Freq PRN Reason Stop Dose Admin Acetaminophen 650 mg 07/02/25 15:50 Acetaminophen 325 Mg Tablet PO Q4H PRN Mild Pain (1-3) or Fever Dextrose 12.5 gm 07/02/25 21:16 Dextrose 50% 25 Gm/50 Ml Syringe IV PUSH PRN PRN Hypoglycemia Protocol Glucagon 1 mg 07/02/25 21:16 Glucagon For Inj 1 Mg Vial IM PRN PRN Hypoglycemia Protocol Glucose 15 gm 07/02/25 21:16 Glucose Oral Gel 15 Gm Of Glucse In 37.5 Gm Tube PO PRN PRN Hypoglycemia Protocol Hydromorphone HCl 0.5 mg 07/02/25 15:50 07/02/25 20:42 Hydromorphone Hcl Inj (*Crx) 1 Mg/Ml Syr IV PUSH 0.5 mg Q4H PRN Administration Pain Rated 7-10 Dextrose 1,000 mls @ 100 mls/hr 07/02/25 21:16 Dextrose 5% 1,000 Ml IVPB PRN PRN Hypoglycemia Protocol Sodium Chloride 1,000 mls @ 100 mls/hr 07/02/25 21:25 07/04/25 04:33 Normal Saline Iv IV CONT 100 mls/hr .Q10H OMKAR Administration Cefazolin Sodium 2 gm/ Sodium 50 mls @ 100 mls/hr 07/04/25 09:00 Chloride IVPB 07/04/25 09:29 ONCE ONE Ketorolac Tromethamine 15 mg 07/03/25 12:42 Ketorolac 15 Mg/Ml Vial (*Bkc) IV PUSH 07/05/25 12:00 Q6H PRN Pain Rated 4-6 if NPO Lisinopril 10 mg 07/04/25 09:00 Lisinopril 10 Mg Tablet PO DAILY OMKAR Ondansetron HCl 4 mg 07/02/25 21:07 07/03/25 13:44 Ondansetron Inj 4 Mg/2 Ml Vial IV PUSH 4 mg Q6H PRN Administration Nausea And Vomiting Oxycodone HCl 5 mg 07/02/25 21:07 07/03/25 08:18 Oxycodone Hcl (*Crx) 5 Mg Tab Ir PO 5 mg Q4H PRN Administration Moderate Pain (4-6) Pantoprazole Sodium 40 mg 07/03/25 09:00 07/03/25 08:15 Pantoprazole 40 Mg Tablet PO 40 mg QAM OMKAR Administration Polyethylene Glycol 17 gm 07/03/25 09:00 07/03/25 08:16 Polyethylene Glycol 3350 17 Gm Powd.Pack PO 17 gm QAM OMKAR Administration Prochlorperazine Edisylate 10 mg 07/02/25 21:07 Prochlorperazine Edisylate 10 Mg/2 Ml Vial IV PUSH Q6H PRN Nausea And Vomiting Rosuvastatin Calcium 20 mg 07/04/25 09:00 Rosuvastatin 20 Mg Tablet PO DAILY OMKAR Senna 8.6 mg 07/03/25 21:00 07/03/25 20:48 Sennosides 8.6 Mg Tablet PO 8.6 mg HS OMKAR Administration Sertraline HCl 50 mg 07/03/25 09:00 07/03/25 08:15 Sertraline Hcl 50 Mg Tablet PO 50 mg QAM OMKAR Administration Radiology Results: ITS Impressions Abdomen/Pelvis CT 07/02/25 13:39 IMPRESSION: 1. Right UPJ obstruction with severe right hydronephrosis, delayed right nephrogram and mild right perinephric stranding but without evident obstructing stone or mass at the ureteropelvic junction. Correlate with urinalysis. Labs Labs: Laboratory Results - last 24 hr 07/03/25 07/03/25 07/03/25 11:31 17:02 20:01 WBC RBC Hgb Hct MCV MCH MCHC RDW Plt Count MPV Immature Gran % (Auto) Neut % (Auto) Lymph % (Auto) [place] % (Auto) Eos % (Auto) Baso % (Auto) Lymph # (Auto) [place] # (Auto) Eos # (Auto) Baso # (Auto) Abs Immat Gran (auto) Absolute Neuts (auto) Absolute Nucleated RBC Nucleated RBC % Sodium Potassium Chloride Carbon Dioxide Anion Gap BUN Creatinine Estim Creat Clear Calc Estimated GFR Glucose POC Capillary Glucose 112 H 104 128 H Calcium 07/04/25 07/04/25 05:09 08:01 WBC 6.7 RBC 4.77 Hgb 14.1 Hct 42.7 MCV 89.5 MCH 29.6 MCHC 33.0 RDW 12.8 Plt Count 212 MPV 11.2 H Immature Gran % (Auto) 0.3 Neut % (Auto) 61.5 Lymph % (Auto) 19.2 [place] % (Auto) 15.8 H Eos % (Auto) 2.7 Baso % (Auto) 0.5 Lymph # (Auto) 1.28 [place] # (Auto) 1.1 H Eos # (Auto) 0.2 Baso # (Auto) 0.0 Abs Immat Gran (auto) 0.02 Absolute Neuts (auto) 4.1 Absolute Nucleated RBC 0.000 Nucleated RBC % 0.0 Sodium 140 Potassium 3.6 Chloride 109 H Carbon Dioxide 21 L Anion Gap 10 BUN 13 D Creatinine 0.85 Estim Creat Clear Calc 74 Estimated GFR > 60 Glucose 103 POC Capillary Glucose 97 Calcium 8.8
[2025-07-04] MEDS: LACTATED RINGERS 1,000 ML 30 ML IV CONT (13:00)
--- NOTE | 2025-07-04 13:22 | WPDHPUPDATE1 ---
History and Physical Update Update Date/Time: 07/04/25 13:22 History and Physical has been reviewed, including an updated exam of the patient. Patient has recurrent renal Lasix scan shows split kidney function of 40% on the right, 60% on the left. There is evidence of high-grade obstruction on the right consistent with working diagnosis of right ureteropelvic junction obstruction. Otherwise, there are NO changes in the patient's condition. Risks, benefits, and alternatives have been discussed and questions answered. Patient agrees to proceed with procedure.
--- NOTE | 2025-07-04 13:45 | WPDANESEPPF ---
Anes - Initial Pre Proc Eval Procedure: Operation Date: 07/04/25 14:00 Proposed Procedures p Cystoscopy, Right Retrograde Pyelogram, Possible Stone Extraction, Possible Holmium Laser Lithotripsy, Possible Right Stent Placement(Right) - Pierre Tate MD Date/Time: 07/04/25 13:45 Surgeon: Wellington Lynn MD Pre Op Diagnosis: R Hydronephrosis, hematuria Patient Data Age: 50 Gender: F Height: 1.63 m Weight: 87.9 kg Last Vital Signs Temp 98.3 F 07/04/25 13:00 Pulse 73 07/04/25 13:00 Resp 16 07/04/25 13:00 BP 121/72 07/04/25 13:00 Pulse Ox 98 07/04/25 13:00 O2 Del Method Room Air 07/04/25 13:00 Allergies Allergy/AdvReac Type Severity Reaction Status Date / Time No Known Allergies Allergy Verified 07/04/25 13:19 Home Medications ?Medication ?Instructions ?Recorded ?Confirmed ?Type cholecalciferol (vitamin D3) 25 25 mcg PO DAILY 08/10/23 07/02/25 History mcg (1,000 unit) capsule ginkgo biloba 40 mg tablet 40 mg PO DAILY 08/10/23 07/02/25 History magnesium 200 mg tablet 200 mg PO DAILY 08/10/23 07/02/25 History multivitamin 1 tablet PO DAILY 08/10/23 07/02/25 History sertraline 50 mg tablet 50 mg PO DAILY #90 tabs 09/10/24 07/02/25 Rx rosuvastatin 20 mg tablet 20 mg PO DAILY #90 tabs 02/04/25 07/02/25 Rx omeprazole 40 mg capsule,delayed 40 mg PO DAILY #90 caps 02/12/25 07/02/25 Rx release estradiol 0.01% (0.1 mg/gram) 1 g vaginal 3XW #42.5 grams 02/14/25 07/02/25 Rx vaginal cream estradiol-norethindrone acet 1 1 tablet PO DAILY #28 tabs 03/17/25 07/02/25 Rx mg-0.5 mg tablet (Activella) hydroxyzine HCl 25 mg tablet 25 mg PO BID PRN anxiety #60 tabs 03/17/25 07/02/25 Rx lisinopril 10 mg tablet 10 mg PO DAILY #90 tabs 06/16/25 07/02/25 Rx tirzepatide (weight loss) 10 10 mg (0.5 mL) subcut WEEKLY #2 mL 06/20/25 07/02/25 Rx mg/0.5 mL subcutaneous pen injector (Zepbound) ondansetron 4 mg disintegrating 4 mg PO Q8H PRN nausea and 06/30/25 07/02/25 Rx tablet vomiting #10 tabs Laboratory Tests 07/03/25 07/03/25 07/04/25 17:02 20:01 05:09 WBC 6.7 K/mm3 (4.5-10.0) RBC 4.77 M/mm3 (4.2-5.4) Hgb 14.1 g/dL (12.0-15.0) Hct 42.7 % (37.0-47.0) MCV 89.5 fl (80-100) MCH 29.6 pg (26-34) MCHC 33.0 g/dl (32-36) RDW 12.8 % (11.5-14.5) Plt Count 212 k/mm3 (150-375) MPV 11.2 H fl (7.4-10.4) Immature Gran % (Auto) 0.3 % (0-0.5) Neut % (Auto) 61.5 % (45.5-73.1) Lymph % (Auto) 19.2 % (18.3-44.2) [place] % (Auto) 15.8 H % (2.6-8.5) Eos % (Auto) 2.7 % (0-4.4) Baso % (Auto) 0.5 % (0.2-1.2) Lymph # (Auto) 1.28 K/mm3 (0.9-3.2) [place] # (Auto) 1.1 H K/mm3 (0.1-0.6) Eos # (Auto) 0.2 K/mm3 (0-0.3) Baso # (Auto) 0.0 K/mm3 (0.0-0.1) Abs Immat Gran (auto) 0.02 K/mm3 (0.00-0.031) Absolute Neuts (auto) 4.1 K/mm3 (1.3-6.7) Absolute Nucleated RBC 0.000 K/mm3 (0.0-0.012) Nucleated RBC % 0.0 % (0.0-0.2) Sodium 140 mmol/L (137-145) Potassium 3.6 mmol/L (3.4-5.0) Chloride 109 H mmol/L (98-107) Carbon Dioxide 21 L mmol/L (22-30) Anion Gap 10 mmol/L (4-12) BUN 13 D mg/dL (7-17) Creatinine 0.85 mg/dL (0.7-1.0) Estim Creat Clear Calc 74 ml/min Estimated GFR > 60 (59 - ) Glucose 103 mg/dL (65-110) POC Capillary Glucose 104 mg/dl 128 H mg/dl (65-105) (65-105) Calcium 8.8 mg/dL (8.4-10.2) 07/04/25 07/04/25 08:01 11:35 WBC RBC Hgb Hct MCV MCH MCHC RDW Plt Count MPV Immature Gran % (Auto) Neut % (Auto) Lymph % (Auto) [place] % (Auto) Eos % (Auto) Baso % (Auto) Lymph # (Auto) [place] # (Auto) Eos # (Auto) Baso # (Auto) Abs Immat Gran (auto) Absolute Neuts (auto) Absolute Nucleated RBC Nucleated RBC % Sodium Potassium Chloride Carbon Dioxide Anion Gap BUN Creatinine Estim Creat Clear Calc Estimated GFR Glucose POC Capillary Glucose 97 mg/dl 90 mg/dl (65-105) (65-105) Calcium Patient hx anesthesia problems: none Family hx anesthesia problems: none Results Review: All pre-operative results and documents have been reviewed as part of the pre-operative evaluation. [facility] Past Medical History Medical History Screening mammogram, encounter for Cataract Chronic GERD Anxiety High cholesterol Surgical History Surgical History History of orthopedic surgery left leg hardware H/O midurethral sling procedure History of carpal tunnel surgery Lower extremity surgery planned Family History Family History Father Depression Hypertension Family history of emphysema Family history of bipolar disorder Mother Diabetes mellitus Hypertension Family history of arthritis Family history of bipolar disorder Family history of malignant neoplasm of uterus Social History Social History Smoking packs per day: 1 Smoking cigarettes per day: 20.0 Years smoked: 3 Smoking pack-years: 3.00 Smoking status: Former smoker Tobacco type: cigarettes Second hand tobacco smoke exposure: No Alcohol intake: current Drinks per week: 1 Alcohol use details: social 3 a month Substance use: current Substance use type: marijuana Lack of Transportation: No Lack of Food: Never True Current Housing: I Have Housing Concerned About Future Housing: No Difficulty Paying Gas/Electric Bills: No Difficulty Paying for Meds: No Currently Unemployed: No Education: Associate Degree Difficulty w/ Childcare or Family Care: No Living arrangements: with family Additional living arrangements comments: 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 Gender identity (if verbalized by the patient): Female Sexual Orientation (if Verbalized by the Patient): Straight or Heterosexual Spiritual care concerns: No Anes - Eval Final PreProcedure Day of Procedure 07/04/25 13:45 Patient weight: normal and obese Heart: regular rate and rhythm Lungs: clear to auscultation Airway: Mallampati scale class II Neurological: alert and oriented Last oral intake: >/= 8 hours ASA classification: III Emergent: no Anesthetic plan: proceed Anesthesia type and monitoring: general LMA and standard monitoring Results Review: All pre-operative results and documents have been reviewed as part of the pre-operative evaluation. Informed Consent: The patient's anesthetic plan and its attendant risks and benefits were discussed with the patient/family/POA. Questions were solicited and answers provided to the satisfaction of the patient/family/POA.
[2025-07-04] MEDS: ceFAZolin 2 GM in SODIUM CHLORIDE 0.9% IV 50 ML 100 ML IVPB (13:53)
--- NOTE | 2025-07-04 14:40 | W.PM.PROC2 ---
Procedure Note - Detailed Date of Procedure 07/04/25 Pre-op Diagnosis Right ureteropelvic junction obstruction Post-op Diagnosis Other (Right ureteropelvic junction obstruction) Procedure Performed 1. Cystoscopy 2. Right retrograde pyelogram with intraoperative interpretation 3. Right diagnostic ureteroscopy 4. Right ureteral stent placement Surgeon Pierre Tate MD Anesthesia General Findings 1. Cystourethroscopy revealed a mild cystocele with otherwise orthotopic ureteral orifices bilaterally and no suspicious lesions, tumors, active bleeding, or stones in the lower urinary tract. 2. Right retrograde pyelogram using 50 50 mixture of contrast and saline showed moderate to severe right hydronephrosis with a discrete transition point at the right ureteropelvic junction without contrast extravasation 3. Right diagnostic ureteroscopy revealed no suspicious ureteral lesions. Upon advancing the ureteral scope into the right renal pelvis there was cloudy urine with some light colored debris. This was aspirated through the ureteral scope and sent off as a specimen for urine culture. Pullback ureteroscopy revealed no additional findings. 4. Successful right ureteral stent placement without strings attached Description of Procedure After informed consent was obtained, the patient was brought back to the operating theatre and placed in the supine position on the operating table. Pre-operative antibiotics were confirmed to have been administered. Anesthesia was induced. The patient was moved into the dorsal lithotomy position and prepped and draped in the standard sterile fashion for an endoscopic case. All pressure points were padded. Bilateral sequential compression devices were on and noted to be functioning. A formal timeout was performed with Dr. Tate in attendance to confirm the correct patient, site/laterality, and procedure and all were in agreement to proceed. To begin with, I atraumatically advanced a lubricated 22-[place] rigid cystoscope transurethrally into the patient's bladder. Pancystoscopy was performed with findings as noted above. Attention was then turned to the right ureteral orifice, which was gently cannulated with a Sensor wire which was advanced up to the level of the right distal ureter under fluoroscopy. Over top of the wire, a 5-[place] open ended catheter was advanced to the level of the distal ureter. The wire was removed keeping the open-ended catheter in place and a right retrograde pyelogram was performed using a 50:50 mixture of saline and contrast with findings as noted above. The wire was then replaced through the open-ended catheter and was advanced up to the level of the right kidney under fluoroscopy. I then removed the cystoscope and secured the Sensor wire to the drapes with a hemostat. Next, I advanced a semi rigid ureteroscope transurethrally into the patient's bladder and cannulated the right ureteral orifice with a 2nd, safety Glidewire. Between the 2 wires I then guided the ureteroscope to perform right diagnostic ureteroscopy. I advanced the ureteroscope carefully to level of the right ureteropelvic junction. In the renal pelvis I was able to see some cloudy urine with some light colored debris. I used a lower lock syringe to aspirate some of this urine which was sent off as a specimen labeled ?right kidney urine? for urine culture. I then performed pullback ureteroscopy with no additional findings. Next, I advanced the open-ended catheter over top of the Sensor wire to the level of the right mid ureter then removed the Sensor wire performed another right-sided retrograde pyelogram in order to delineate the right collecting system in anticipation of stent placement. I then replaced a Sensor wire through the open-ended catheter and removed the open-ended catheter in [place]eldinger fashion. Next, I backloaded the cystoscope onto the Sensor wire which was advanced transurethrally patient's bladder with attention drawn to the right ureteral orifice. Over top of the wire, a 6-[place] Citizen x 24 cm JJ stent was advanced and the pusher was used to deploy the stent in place, confirming a good proximal curl in the right kidney under fluoroscopy and a good distal curl in the bladder under both fluoroscopic and direct cystoscopic vision. The patient's bladder was then emptied and the cystoscope was removed, essentially concluding the case. At the conclusion of the case all sponge, instrument, and sharp counts were correct x 2. The patient was then awoken from anesthesia and taken to the recovery room in stable condition. The patient tolerated the procedure well and there were no immediate complications noted. Disposition: The patient will be monitored in the PACU and be transferred back to her hospital room after clearing PACU protocol. From there, if she is clinically doing well, she may be discharged home later today from a urology standpoint. We will make arrangements for patient to follow-up in the urology clinic to discuss management options for her right ureteropelvic junction obstruction.
--- NOTE | 2025-07-04 15:06 | P.DS_ITS ---
DS: Admitting Diagnosis Discharge Date 07/04/25 Admitting Diagnosis - UPJ obstruction - nausea/vomiting DS: Discharge Diagnosis Discharge Diagnosis (1) Hydronephrosis of right kidney: Code(s): N13.30 - Unspecified hydronephrosis Status: Acute (2) Nausea and vomiting: Code(s): R11.2 - Nausea with vomiting, unspecified Status: Acute (3) Hypertension: Code(s): I10 - Essential (primary) hypertension Status: Acute (4) Hyperlipidemia: Qualifiers: Hyperlipidemia type: mixed hyperlipidemia Qualified Code(s): E78.2 - Mixed hyperlipidemia Code(s): E78.5 - Hyperlipidemia, unspecified Status: Acute DS: Summary Hospital Course Reason for hospitalization: - UPJ obstruction - nausea/vomiting Hospital Course: October Efraín Encarnacion is a 50-year-old female with a history of hypertension, hyperlipidemia, GERD, anxiety, and prior midurethral sling placement who presented on 07/02/25 with four days of abdominal pain, nausea, vomiting, and new right flank pain. Initial evaluation in the emergency department revealed leukocytosis, hematuria, and CT imaging demonstrating severe right hydronephrosis with a transition point at the right ureteropelvic junction, without evidence of an obstructing stone or mass. She was admitted for further management, pain control, and urologic evaluation. Urology was consulted and recommended further diagnostic evaluation and intervention. During hospitalization, her renal function remained stable and leukocytosis improved. On 07/04/25, she underwent cystoscopy, right retrograde pyelogram, diagnostic ureteroscopy, and successful right ureteral stent placement for suspected right UPJ obstruction. Intraoperative findings confirmed moderate to severe hydronephrosis with a discrete UPJ transition point and no intraluminal lesions. Postoperatively, the patient recovered well without complications. At the time of discharge, she was tolerating a regular diet, ambulating without difficulty, and her pain and nausea were adequately controlled. She was cleared for discharge by urology with instructions for close outpatient urology follow-up to discuss definitive management options for her right UPJ obstruction, including potential future surgical intervention. She was discharge with Flomax and Macrobid per urology in addition to a short course of oxycodone, oxybutynin for pain control. Patient was instructed to hold Mounjaro until follow-up with PCP due to nausea/vomiting after increasing dosage. Status at Discharge Overall status at discharge: patient is back to baseline Time Spent with Patient Time attestation: Total time spent providing and/or coordinating discharge services: Time spent: Greater than 30 minutes Exam Narrative: General: NAD Eyes: EOMI ENT: neck supple Cardiovascular: Regular rate and rhythm Respiratory: Clear to auscultation, respirations even and unlabored on RA Gastrointestinal: Soft, non tender Genitourinary: no suprapubic tenderness Musculoskeletal: No edema Skin: warm, dry Neuro: Alert. Psych: Mood appropriate DS: Data Data Completed and Pending Completed studies during hospitalization: ITS Impressions Abdomen/Pelvis CT 07/02/25 13:39 IMPRESSION: 1. Right UPJ obstruction with severe right hydronephrosis, delayed right nephrogram and mild right perinephric stranding but without evident obstructing stone or mass at the ureteropelvic junction. Correlate with urinalysis. Renal Scan Nuclear Medicine 07/04/25 10:43 IMPRESSION: 1. Right hydronephrosis with decreased right renal function accounting for only 40% to total renal function. 2. Severe delayed activity excretion from the right kidney with continually rising renal activity curve consistent with high-grade obstruction. 3. Mildly delayed activity clearance from the left kidney without evident hydronephrosis in the current or prior study to suggest obstruction and this more likely reflects artifact of Lasix administered a few hours prior to the study. Retrograde Pyelogram 07/04/25 14:36 IMPRESSION: 1. Right internal ureteral stent placement. Please refer to real-time procedural findings for details. Labs on day of discharge: Labs from last 24 hours 07/04/25 07/04/25 07/04/25 11:35 08:01 05:09 WBC 6.7 RBC 4.77 Hgb 14.1 Hct 42.7 MCV 89.5 MCH 29.6 MCHC 33.0 RDW 12.8 Plt Count 212 MPV 11.2 H Immature Gran % (Auto) 0.3 Neut % (Auto) 61.5 Lymph % (Auto) 19.2 [place] % (Auto) 15.8 H Eos % (Auto) 2.7 Baso % (Auto) 0.5 Lymph # (Auto) 1.28 [place] # (Auto) 1.1 H Eos # (Auto) 0.2 Baso # (Auto) 0.0 Abs Immat Gran (auto) 0.02 Absolute Neuts (auto) 4.1 Absolute Nucleated RBC 0.000 Nucleated RBC % 0.0 Sodium 140 Potassium 3.6 Chloride 109 H Carbon Dioxide 21 L Anion Gap 10 BUN 13 D Creatinine 0.85 Estim Creat Clear Calc 74 Estimated GFR > 60 Glucose 103 POC Capillary Glucose 90 97 Calcium 8.8 07/03/25 07/03/25 20:01 17:02 WBC RBC Hgb Hct MCV MCH MCHC RDW Plt Count MPV Immature Gran % (Auto) Neut % (Auto) Lymph % (Auto) [place] % (Auto) Eos % (Auto) Baso % (Auto) Lymph # (Auto) [place] # (Auto) Eos # (Auto) Baso # (Auto) Abs Immat Gran (auto) Absolute Neuts (auto) Absolute Nucleated RBC Nucleated RBC % Sodium Potassium Chloride Carbon Dioxide Anion Gap BUN Creatinine Estim Creat Clear Calc Estimated GFR Glucose POC Capillary Glucose 128 H 104 Calcium Discharge Plan Discharge Attending physician on discharge: Scott Pereira Consulting providers: Gwendolyn Louis; Nayla Kowalski Discharging Clinician: Gwendolyn Louis Patient Disposition: Home Activity: may shower Diet: as tolerated Discharge Instructions: UROLOGY DISCHARGE INSTRUCTIONS: Instructions for your ureteral stent:?? It is normal to have blood in the urine, urinary frequency and/or urgency, and abdominal/back cramping with a ureteral stent.? Take the medications we have have provided you to control these symptoms.? Medications: - Tamsulosin (AKA Flomax) ? take this medication once a day at bedtime which will help to minimize discomfort from your ureteral stent - Nitrofurantoin (AKA Macrobid) ? take this antibiotic twice daily as prescribed for the next 5 days Activity:? Advance as tolerated. Diet: No restrictions. Work: OK to return to work as you see fit. Pain: Try [id number] Tylenol or Ibuprofen first, if this doesn't help then take the prescriptions we may have provided you. Please note: It is normal to have some blood in your urine.? This is expected given the urologic procedure and as long as you have a ureteral stent in place. Notify us if: Fevers greater than 100.4 Fahrenheit, pain uncontrolled with medications, persistent vomiting, inability to urinate or if you are passing lar ge blood clots in your urine, or if you have any questions. Follow up:? The urology office will contact you in the upcoming future to schedule your follow-up office visit to discuss management options for your right kidney. Call the urology clinic at with any questions or concerns. Hold Zepbound until follow-up with your PCP due to nausea/vomiting. Patient Instructions: Antibiotic Form Patient Language: Malay Stand Alone Forms: General Discharge Information Follow-up/Referrals: Pierre Tate MD [Physician, Urology] Dyllan Gaitan DO [Primary Care Provider, Internal Medicine] Referral Note: follow-up in 5-7 days Discharge Medications: New tamsulosin 0.4 mg capsule 0.4 mg PO HS Qty: 30 1RF nitrofurantoin macrocrystal 100 mg capsule 100 mg PO Q12H 5 Days Qty: 10 0RF Rx Instructions: must administer with a meal/food oxycodone 5 mg tablet 5 mg PO Q8H PRN (Reason: pain) Qty: 6 0RF oxybutynin chloride 5 mg tablet 5 mg PO TID PRN (Reason: bladder spasms) Qty: 12 0RF Continued omeprazole 40 mg capsule,delayed release(DR/EC) 40 mg PO DAILY Qty: 90 3RF multivitamin Tablet 1 tablet PO DAILY magnesium 200 mg tablet 200 mg PO DAILY ginkgo biloba 40 mg tablet 40 mg PO DAILY Rx Instructions: give with meal/snack cholecalciferol (vitamin D3) 25 mcg (1,000 unit) capsule 25 mcg PO DAILY estradiol 0.01 % (0.1 mg/gram) cream 1 g vaginal 3XW Qty: 42.5 1RF sertraline 50 mg tablet 50 mg PO DAILY Qty: 90 3RF rosuvastatin 20 mg tablet 20 mg PO DAILY Qty: 90 1RF estradiol-norethindrone acet [Activella] 1-0.5 mg tablet 1 tablet PO DAILY Qty: 28 11RF hydroxyzine HCl 25 mg tablet 25 mg PO BID PRN (Reason: anxiety) Qty: 60 0RF lisinopril 10 mg tablet 10 mg PO DAILY Qty: 90 1RF ondansetron 4 mg tablet,disintegrating 4 mg PO Q8H PRN (Reason: nausea and vomiting) Qty: 10 1RF Held Zepbound 10 mg/0.5 mL pen injector 10 mg subcut WEEKLY Qty: 2 0RF Hold Instructions: Resume on 07/18/25. Hold until follow-up with PCP due to nausea and vomiting Date of admission: 07/04/25 09:29 Primary Care Provider: Dyllan Gaitan Admitting Provider: Wellington Lynn Attending physician on admission: Wellington Lynn Condition: Stable
== END 2025-07-04 17:17 | disposition home or self-care (01) | DRG 661 ==
LOC: ANHED 15:40 → ANH3MEDSUR 17:56 → ANH3MED 20:17
PROVIDERS: Nurse Practitioner Acute Care; Urology; Admitting Provider Internal Medicine; Emergency Provider Emergency Medicine; PCP Internal Medicine; Visit Provider Physician Assistant
PROC: 0T768DZ Dilation of Right Ureter with Intraluminal Device, Via Natural or Artificial Opening Endoscopic (ICD-10-PCS; CPT 52352; principal; 2025-07-04 14:00)
DX: N13.1 Hydronephrosis with ureteral stricture, not elsewhere classified (principal); R31.0 Gross hematuria; N81.10 Cystocele, unspecified; E78.5 Hyperlipidemia, unspecified; F41.9 Anxiety disorder, unspecified; K21.9 Gastro-esophageal reflux disease without esophagitis; E78.00 Pure hypercholesterolemia, unspecified; I10 Essential (primary) hypertension; F32.A Depression, unspecified; Z79.85 Long-term (current) use of injectable non-insulin antidiabetic drugs
CPT/HCPCS: 36415; 74177; 74420; 78707; 80048; 80053; 81001; 82948; 83690; 83735; 84145; 85025; 85652; 86140; 87086; 96361; 96365; 96375; 99285; J0690; A9270; A9562; C1758; C1769; C2617; G0378; J0696; J1100; J1171; J1650; J1885; J1938; J2003; J2250; J2405; J2704; J3010; J7030; J7120; Q9966; Q9967